=== PATIENT | male | born 1985 | race Caucasian/White ===

== ENCOUNTER 2016-09-06 18:00 | Inpatient (IN) | payer BC ==
[2016-09-06] MEDS ORDERED: Sodium Chloride 0.9% 3,000 ML IV ONE (18:49)
[2016-09-06 19:04] VITALS: BP 138/91
[2016-09-06 19:10] LABS: HEMATOCRIT 45.1 % (39.0-49.0); HEMOGLOBIN 15.6 gm/dL (13.2-17.3); MEAN CORPUSCULAR HEMOGLOBIN 30.8 pg (26.0-30.0); MEAN CORPUSCULAR HGB CONC 34.6 pg (28.0-36.0); MEAN PLATELET VOLUME 8.6 fl; PLATELET COUNT 295 Th/cmm (150-400); RED BLOOD COUNT 5.06 Mil/cmm (4.30-5.70); RED CELL DISTRIBUTION WIDTH 12.4 % (11.5-20.0)
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
[2016-09-06 19:26] LABS: ALB/GLOB RATIO 1.6 (1.0-1.8); ANION GAP 13.7 (7.0-16.0); BILIRUBIN,TOTAL 0.6 mg/dL (0.3-1.0); BUN/CREATININE RATIO 9.4; CARBON DIOXIDE 19.3 mEq/L (21.0-31.0); CREATININE - SERUM 1.8 mg/dL (0.7-1.3)
[2016-09-06 19:35] LABS: WHITE BLOOD COUNT 26.4 Th/cmm (4.8-10.8)
[2016-09-06 19:39] LABS: URINE COLOR YELLOW
[2016-09-06 19:40] LABS: URINE BILIRUBIN NEGATIVE (NEGATIVE); URINE BLOOD TRACE (NEGATIVE); URINE GLUCOSE (UA) 500 mg/dL (NEGATIVE); URINE KETONE NEGATIVE (NEGATIVE); URINE PH 5.5; URINE PROTEIN 30 mg/dL (NEGATIVE); URINE UROBILINOGEN 0.2 E.U./dL (0.2 - 1.0)
[2016-09-06 19:41] LABS: URINE BACTERIA NONE SEEN /hpf (NONE SEEN); URINE EPITHELIAL CELLS NONE SEEN /lpf (FEW); URINE RBC NONE SEEN /hpf (0-5); URINE WBC NONE SEEN /hpf (0-5)
[2016-09-06 19:50] LABS: AMPHETAMINE URINE NEGATIVE (NEGATIVE); BARBITURATES URINE NEGATIVE (NEGATIVE); METHADONE URINE NEGATIVE (NEGATIVE)
[2016-09-06] MEDS ORDERED: Albuterol/Ipratropium Neb 3 ML AERS HHN PRN (19:57)
[2016-09-06 20:19] LABS: TOTAL CELLS COUNTED 100
[2016-09-06 20:20] LABS: BAND NEUTROPHILE 14 % (0-10); BASOPHIL 0 % (0-3); EOSINOPHIL 0 % (0-5); NEUTROPHILS 76 % (40-80); PLATELET ESTIMATE ADEQUATE (NORMAL); PLATELET MORPHOLOGY NORMAL (NORMAL)
[2016-09-06] MEDS: Sodium Chloride 0.9% 1,000 ML IV SCH (21:20)
[2016-09-06] MEDS ORDERED: Levofloxacin 750mg/150mL 750 MG/150 ML BAG IV ONE (21:45)
--- NOTE | 2016-09-06 22:21 | Admit Criteria Form ---
Admit Criteria Forms - Admit Criteria Diagnosis: INTENSIVE CARE UNIT ADMISSION Intensive Care Admission Guidelines ( Place 'X' for any and all applicable criteria): Admission to ICU may be indicated when need is demonstrated by ANY ONE of the following (1)(2)(3)(4)(5)(6)(7)(8)(9) : [ ]I. Vital sign abnormalities, including ANY ONE of the following: [ ]a) Systolic arterial pressure less than 90 mm Hg, or 20 mm Hg below the patient's usual pressure [ ]b) Diastolic arterial pressure greater than 120 mm Hg [ ]c) Mean arterial pressure less than 70 mm Hg [A] [ ]d) Pulse less than 40 or greater than 140 beats per minute (in adult) [ ]e) Respiratory rate greater than 35 or less than 8 breaths per minute [ ]II. Laboratory findings (new), including ANY ONE of the following (10): [ ]a) Saturation of arterial oxygen less than 88% or partial pressure of oxygen less than 60 mm Hg (8.0 kPa) despite oxygen supplementation [ ]b) Rising partial pressure of carbon dioxide with respiratory acidosis [ ]c) pH less than 7.2 or greater than 7.65 [ ]d) Serum glucose greater than 800 mg/dL (44.4 mmol/L) [ ]e) Serum sodium less than 110 mEq/L (mmol/L) or greater than 160 mEq/L (mmol/L) [ ]f) Serum potassium less than 2 mEq/L (mmol/L) or greater than 7 mEq /L (mmol/L) [ ]g) Serum calcium greater than 15 mg/dL (3.75 mmol/L) [ ]h) Serum phosphorus less than 1 mg/dL (0.32 mmol/L) [ ]i) Toxic drug level or poisoning causing or likely to cause neurologic or Hemodynamic instability [ ]j) Less severe laboratory abnormalities contributing to ANY ONE of the following: [ ]i) Seizure [ ]ii) Altered mental status [ ]iii) Muscle weakness [ ]iv) Arrhythmias [ ]v) Hemodynamic instability [ ]vi) Other significant clinical manifestations [ ]III. Electrocardiogram (or cardiac monitoring) findings, including ANY ONE of the following: [ ]a) Inherently unstable or life-threatening arrhythmia (eg, sustained ventricular tachycardia, ventricular fibrillation, asystole) [ ]b) Arrhythmia causing severe hypotension (eg, bradycardia, tachycardia) [ ]c) Complete heart block causing severe hypotension [ ]d) Other findings indicative of a need for intensive care (eg , OR) [ ]IV.Physical findings, including ANY ONE of the following: [ ]a) Threatened airway [ ]b) Sudden altered mental status [ ]c) Repeated or prolonged seizures [ ]d) Coma [ ]e) New-onset anuria (urine output <0.1 mL/kg/hr over 4 h) [ ]f) Cyanosis (new) [ ]g) Cardiac tamponade [ ]h) Status post respiratory or cardiac arrest [ ]i) Severe banuelos (eg, partial thickness banuelos over more than 10% of body surface, third-degree banuelos) [ ]j) Findings consistent with abdominal emergency (eg, peritoneal signs) [ ]V.Imaging findings, such as dissecting aneurysm or ruptured viscus [ ].Specific intervention or monitoring needed, as indicated by ANY ONE of the following: [ ]a) New need for assisted ventilation, invasive or noninvasive(11) [ ]b) New need for intubation (eg, to protect airway) [ ]c) New tracheostomy (less than 48 hours old) [ ]d) Hourly vital signs or neurologic checks [ ]e) Pulmonary artery line monitoring needed [ ]f) Continuous arterial line monitoring needed [ ]g) Continuous IV vasoactive drugs [ ]h) Continuous IV antiarrhythmics [ ]i) Large volume IV fluid resuscitation (eg, greater than 6 L per day ) [ ]j) Large or rapid transfusion needs (eg, more than 6 units within 24 hours) [ ]k) High-risk IV treatment, such as bolus IV medicatns or mannitol infusion [ ]l) Acute cardiac pacing [ ]m) Intra-aortic balloon pump [ ]n) Ventricular assist device [ ]o) Cardioversion [ ]p) Pericardiocentesis [ ]q) Hemodialysis in unstable patient [ ]r) Continuous renal replacement therapy (eg, continuous veno-venous hemofiltration) [ ]s) Peritoneal dialysis initiation [ ]t) Emergency bronchoscopic therapy (eg, for hemoptysis) [ ]u) Emergency endoscopic therapy for bleeding [ ]v) Balloon tamponade for variceal bleeding [ ]w) Intracranial pressure monitoring or tissue oxygen monitoring [ ]x) Ventriculostomy monitoring [ ]y) Treatment of ongoing seizures [ ]z) Induced hypothermia or coma [ ]aa) Ongoing frequent testing and treatment for acute conditions, including ANY ONE of the following: [ ]i) Correction of severe metabolic acidosis/ alkalosis [ ]ii). Severe fluid overload [ ]iii) Cerebral edema [ ]iv) Monitoring or suctioning for respiratory insufficiency or acidosis [ ]v) Monitoring for active bleeding [ ]bb) Rapid desensitization for high-risk hypersensitivity reaction to required medication (eg, penicillin)(12) [ ]cc) Other need for treatment or monitoring not available outside the ICU [ ]VII.Cardiology diagnoses or procedures, including ANY ONE of the following (13)(14)(15)(16)(17): [ ]a) Chest pain with ANY ONE of the following: [ ]i) Hemodynamic instability [ ]ii) Suspicion of diagnoses needing ICU care (eg, aortic dissection) [ ]iii) New unstable or symptomatic arrhythmia or ECG finding (eg, ventricular tachycardia, ventricular fibrillation, advanced heart block) [ ]iv) Syncope or near-syncope [ ]v) SBP less than 100 mm Hg [ ]vi) Pulmonary edema thought to be due to ischemia [ ]vii) New or worsening mitral regurgitation murmur, S3 , or rales [ ]b) Acute OR with complications as indicated by ANY ONE of the following: [ ]i) Persistent chest pain [ ]ii) Hemodynamic instability [ ]iii) New unstable or symptomatic arrhythmia or ECG finding (eg, ventricular tachycardia, ventricular fibrillation, advanced heart block) [ ]iv) Syncope or near-syncope [ ]v) Pulmonary edema thought to be due to ischemia [ ]vi) New or worsening mitral regurgitation murmur, S3 , or rales [ ]vii) New-onset bundle branch block [ ]viii) Hemorrhagic complication (eg, intracranial or access site bleed following thrombolysis) [ ]c) Cardiac arrhythmia or conduction defect with Hemodynamic instability [ ]d) Complication of cardiac ablation, including ANY ONE of the following(18): [ ]i) Pericardial tamponade [ ]ii) Hemodynamic instability [ ]iii) Thromboembolic stroke [ ]iv) Aortic valve injury [ ]v) Vascular injuries [ ]vi) Esophageal perforation [ ]vii) Severe arrhythmia [ ]viii) Air embolism [ ]ix) Other severe complication [ ]e) Cardiogenic shock [ ]f) Hypertensive emergency, with need for ANY ONE of the following(19): [ ]i) IV antihypertensive therapy [ ]ii) Invasive hemodynamic monitoring (eg, arterial line) [ ]g) Pericardial tamponade [ ]h) Severe heart failure, with ANY ONE of the following(15): [ ]i) Respiratory failure [ ]ii) Cardiogenic shock [ ]iii) Severe arrhythmias [ ]iv) Evidence of cardiac ischemia [ ]i Myocarditis, with ANY ONE of the following [ ]i) Hemodynamic instability [ ]ii) Respiratory failure [ ]iii) Severe arrhythmias [ ]iv) Need for cardiac assist device (eg, left ventricular assist device or extracorporeal membrane oxygenator) [ ]j) Status post cardiac arrest(20) [ ]VIII. Cardiovascular Surgery diagnoses or procedures, including ANY ONE of the following.(21)(22): [ ]a) Acute aortic dissection [ ]b) Aortic surgery for ANY ONE of the following: [ ]i) Thoracic aneurysm [ ]ii) Abdominal aneurysm with ANY ONE of the following(23): [ ]1) Emergency repair [ ]2) Severe cardiopulmonary disease [ ]3) Dialysis-dependent renal failure [ ]4) Need for IV blood pressure control [ ]5) Need for ongoing ventilatory support [ ]6) Perioperative complications, including ANY ONE of the following: [ ]A. Sustained Hemodynamic instability [ ]B. Cardiac ischemia or arrhythmia [ ]C. Hypothermia (less than 35 degrees C (95 degrees F)) [ ]D. Blood transfusion greater than 3 L [ ]iii) Aortic coarctation operative excision or repair [ ]iv) Aortofemoral or aortoiliac bypass with ANY ONE of the following: [ ]1) Continued intubation [ ]2) Hemodynamic instability [ ]3) Need for IV blood pressure control [ ]4) Severe cardiopulmonary disease [ ]c) Cardiac surgery [ ]d) Carotid endarterectomy or stent placement with ANY ONE of the following: [ ]i) Blood pressure <100/60 mm Hg or >160/90 mm Hg despite 4 h of postanesthetic management [ ]ii) New or progressive neurologic defect [ ]iii) Chest pain [ ]iv) Continued intubation [ ]v) Heart failure [ ]vi) Airway compromise by hematoma or vocal cord paralysis [ ]vi) Need for IV blood pressure control [ ]e) Heart transplant [ ]f) Infrainguinal peripheral vascular surgery with ANY ONE of the following: [ ]i) Hemodynamic instability [ ]ii) Acute complications such as persistent chest pain or respiratory distress [ ]iii) Requirement for IV antiarrhythmic or vasoactive agent [ ]iv) Requirement for pulmonary artery catheter [ ]v) Severe hypertension despite 6 hours of recovery room management [ ]g) Complications of any surgery requiring ICU intervention as indicated by ANY ONE of the following(24): [ ]i) Hemodynamic instability [ ]ii) Myocardial infarction with complications (eg, severe arrhythmia, hypotension) [ ]iii) Excessive bleeding or severe coagulopathy [ ]iv) Respiratory failure [ ]v) Renal failure [ ]vi) Airway instability or obstruction [ ]vii) Neurologic deterioration [ ]viii) Infection with likelihood of sepsis syndrome or significant fluid shifts [ ]IX.Endocrinology diagnoses or procedures, including ANY ONE of the following(25)(26): [ ]a) Adrenal crisis with Hemodynamic instability(27) [ ]b) Pheochromocytoma with ANY ONE of the following(28): [ ]i) Hypertensive crisis [ ]ii) Postoperative Hemodynamic instability [ ]iii) Need for IV vasoactive therapy [ ]iv) Need for invasive arterial or central venous pressure monitoring [ ]v) Organ ischemia [ ]c) Diabetic hyperosmolar state with obtundation or coma [ ]d) Diabetic ketoacidosis with ANY ONE of the following: [ ]i) Serum pH less than 7.10 or bicarbonate level less than 10 mEq/L (mmol/L) [ ]ii) Rapidly changing electrolytes [ ]iii) Hypotension [ ]iv) Requirement for large-volume fluid resuscitation [ ]v) Respiratory insufficiency [ ]vi) Life-threatening cardiac dysrhythmias [ ]vii) Obtundation [ ]viii) Severe precipitating condition such as sepsis, stroke, or acute OR [ ]e) Severe hypoglycemia requiring continuous glucose infusion with frequent adjustment or glucagon infusion [ ]f) Hyperthyroidism associated with thyroid storm (also known as thyrotoxic crisis)(29) [ ]g) Myxedema with life-threatening neurologic, cardiovascular, electrolyte, or renal dysfunction(29) [ ]h) Diabetes insipidus that cannot be controlled with routine medication (30) [ ]X. Gastroenterology diagnoses or procedures, including ANY ONE of the following: [ ]a) Esophageal perforation(31) [ ]b) Severe caustic esophageal injury(31) [ ]c) Liver disease complications with ANY ONE of the following(32): [ ]i) Severe hepatic encephalopathy (eg, stage 3 (somnolent) or higher) [ ]ii) Type 1 hepatorenal syndrome [ ]iii) Other cirrhosis-associated causes of acute renal failure ( eg, severe hypovolemia, acute tubular necrosis, abdominal compartment syndrome) [ ]iv) Hemodynamic instability [ ]v) Respiratory insufficiency due to severe ascites [ ]vi) Sepsis due to spontaneous bacterial peritonitis [ ]d) Fulminant hepatic failure when aggressive intervention or transplant is anticipated (32) [ ]e) Gastrointestinal hemorrhage (upper or lower) with ANY ONE of the following(33)(34): [ ]i) Active ongoing bleeding [ ]ii) Transfusion requirement greater than 2 units of packed red cells [ ]iii) Bleeding ulcer or nonbleeding visible vessel seen on endoscopy [ ]iv) Bleeding ulcer, visible blood vessel, bleeding (or recently bleeding) esophageal varices seen on endoscopy [ ]v) Hypotension [ ]vi) Syncope [ ]vii) Coagulopathy [ ]viii) Hepatic cirrhosis [ ]ix) Abnormal mental status [ ]x) Unstable comorbid condition or end organ dysfunction [ ]xi) Ischemia due to poor perfusion [ ]xii) Need for hemodynamic monitoring (eg, for patients with heart failure or valvular disease) [ ]f) Severe pancreatitis indicated by ANY ONE of the following (35)(36): [ ]i) Requirement for aggressive fluid resuscitation [ ]ii) Life-threatening electrolyte abnormality [ ]iii) SBP less than 90 mm Hg [ ]iv) Persistent tachycardia greater than 120 beats per minute [ ]v) Patients at high risk of rapid deterioration, including ANY ONE of the following: [ ]1) Calculated [place] II score greater than 8 [ ]2) Age older than 55 years [ ]3) BMI greater than 30 [ ]4) Greater than 30% pancreatic necrosis on CT scan [ ]5) Admission hematocrit greater than 47% (0.47) [ ]vi) Organ failure as indicated by ANY ONE of the following: [ ]1) Serum creatinine greater than 1.9 mg/dL (168 micromoles/L) [ ]2) Requirement for mechanical ventilation [ ]3) Urine output less than 50 mL/hour [ ]4) Arterial partial pressure of oxygen less than 60 mm Hg (8.0 kPa) despite supplemental oxygen [ ]5) PiO2/FiO2 ratio less than 300 [ ]vii) Expanding pseudocyst [ ]viii) Infected pancreas [ ]ix) Pleural effusion [ ]x) Encephalopathy [ ]xi) Severe comorbidities [ ]XI. General Surgery diagnoses or procedures, including ANY ONE of the following (9)(24)(37): [ ]a) Acute abdominal catastrophe (eg, ischemic bowel, perforated viscus, abdominal compartment syndrome) [ ]b) Complications of any surgery requiring ICU intervention as indicated by ANY ONE of the following: [ ]i) Hemodynamic instability [ ]ii) OR with complications (eg, severe arrhythmia, hypotension) [ ]iii) Excessive bleeding or severe coagulopathy [ ]iv) Respiratory failure [ ]v) Renal failure [ ]vi) Airway instability or obstruction [ ]vii) Neurologic deterioration [ ]viii) Infection with likelihood of sepsis syndrome or significant fluid shifts [ ]c) Multiple trauma with complicating features as indicated by ANY ONE of the following(38): [ ]i) Impending acute respiratory failure due to lung contusion, unstable chest wall, aspiration, or hemorrhage [ ]ii) Facial or neck injury threatening airway patency [ ]iii) Cardiac contusion [ ]iv) Pericardial effusion [ ]v) Bronchial tear [ ]vi) Hemodynamic instability [ ]vii) Rhabdomyolisis requiring large volume IV fluid resuscitation [ ]viii)Other significant complicating feature [ ]d) Organ transplant(39)(40) [ ]e) Esophagectomy(31) [ ]f) Whipple procedure [ ]g) Preoperative or postoperative patients requiring ICU intervention, such as hemodynamic optimization, pulmonary artery monitoring, mechanical ventilation, or extensive nursing care [ ]h) Obesity surgery patients with ANY ONE of the following(41): [ ]i) ICU management needs for comorbid conditions, such as sleep apnea or airway management needs [ ]ii) Failed postoperative extubation [ ]iii) Intraoperative complications [ ]XII. Nephrology diagnoses or procedures, including acute, or acute on chronic renal insufficiency with ANY ONE of the following(44)(45): [ ]a) Life-threatening electrolyte or acid-base disorder [ ]b) Acute pulmonary edema [ ]c) Hypotension or significant volume depletion [ ]d) Hypertensive emergency [ ]e) Underlying critical illness contributing to renal failure (eg, septic shock, hepatorenal syndrome) [ ]f) Need for continuous renal replacement therapy [X]XIII. Neurology diagnoses or procedures, including ANY ONE of the following (46)(47) [B] : [ ]a) Intracranial hypertension requiring ANY ONE of the following(49 ): [ ]i) Induced barbiturate coma [ ]ii) Pharmacologic paralysis or deep sedation and mechanical ventilation [ ]iii) Intracranial pressure or cerebral perfusion pressure monitoring [ ]iv) IV mannitol or hypertonic saline [ ]v) Frequent serum osmolality measurements [ ]b) Seizures with ANY ONE of the following(50): [ ]i) Status epilepticus [ ]ii) Airway compromise requiring or likely to require mechanical ventilation [ ]iii) Severe electrolyte abnormalities causing seizures [ ]c) Progressive acute neurologic dysfunction requiring or likely to require ANY ONE of the following: [ ]i) Mechanical ventilation [ ]ii) Intracranial pressure or cerebral perfusion pressure monitoring [ ]d) Meningitis with obtundation or respiratory insufficiency [C])(51 ) [ ]e) Stroke with ANY ONE of the following(52)(53): [ ]i) Need for observation after thrombolysis [ ]ii) Altered mental status [ ]iii) Need for mechanical ventilation [ ]iv) Elevated intracranial pressure [ ]v) Hypertensive emergency [ ]vi) High risk of progressive infarction or deterioration based on CT scan or MRI [ ]vii) Hemorrhage [ ]f) Acute coma [ ]g) Acute spontaneous intracranial hemorrhage(53)(54) [X]h) Drug ingestion with ANY ONE of the following(56)(57): [ ]i) Hemodynamic instability [ ]ii) Respiratory depression (partial pressure of carbon dioxide >45 mm Hg (6.0 kPa), new) [X]iii) Patient requires or is likely to require mechanical ventilation. [ ]iv) Arrhythmias [ ]v) Seizures [ ]vi) Altered mental status (Jeffrey coma scale score less than 12, new) [ ]vii) Significant risk for acute deterioration (eg, toxic level of hypotension or arrhythmia-producing drug) [ ]viii) Drug-induced hypothermia or hyperthermia [ ]ix) Increasing metabolic acidosis [ ]x) Severe hypoglycemia requiring glucose infusion with frequent adjustment or glucagon administration [ ]xi) Ongoing antidote administration (eg, continuous naloxone infusion, organophosphate toxicity treatment) [ ]xii) Emergency intervention need (eg, dialysis, hemoperfusion, restraints) [ ]i) Brain with preparation for organ donation [ ]j) Traumatic brain injury with ANY ONE of the following(55): [ ]i) Altered mental status (eg, new onset Jeffrey coma scale score less than 10) [ ]ii) Cerebral edema [ ]iii) Cerebral hemorrhage [ ]iv) Increased intracranial pressure [ ]XIV. Neurosurgery diagnoses or procedures, including ANY ONE of the following(49)(58)(59): [ ]a) Emergency craniotomy for tumor, hematoma, or trauma [ ]b) Elective craniotomy for posterior fossa tumor [ ]c) Elective craniotomy (supratentorial) for tumor with ANY ONE of the following: [ ]i) Postoperative neurologic deficit or impaired consciousness 6 hours after completion of procedure [ ]ii) SBP less than 110 mm Hg or greater than 180 mm Hg despite therapy [ ]iii) Extensive operative blood loss [ ]iv) High anesthesia risk (eg, [place] [employer] anest[employer] score greater than 3 [ ]d) Craniotomy for aneurysm with ANY ONE of the following: [ ]i) Postoperative neurologic deficit or impaired consciousness 6 hours after completion of procedure [ ]ii) Preoperative Gray-Whitaker grade 3 or higher [ ]iii) SBP less than 110 mm Hg or greater than 180 mm Hg despite therapy [ ]iv) Intracranial pressure monitoring [ ]e) Acute spinal cord injury [ ]f) Subarachnoid hemorrhage [ ]g) Traumatic brain injury with ANY ONE of the following: [ ]i) Acute mental status change ([place] coma scale score less than 10) [ ]ii) CT scan showing cerebral edema or hemorrhage [ ]iii) Intracranial pressure monitoring [ ]h) Complications of any surgery requiring ICU intervention as indicated by ANY ONE of the following(60): [ ]i) Hemodynamic instability [ ]ii) OR with complications (eg, severe arrhythmia, hypotension) [ ]iii) Excessive bleeding or severe coagulopathy [ ]iv) Respiratory failure [ ] v) Renal failure [ ]vi) Airway instability or obstruction [ ]vii) Neurologic deterioration [ ]viii) Infection with likelihood of sepsis syndrome or significant fluid shifts [ ]i) Preoperative or postoperative patients requiring ICU intervention, such as hemodynamic optimization, pulmonary artery monitoring, mechanical ventilation, or extensive nursing care [ ]XV.Obstetrics and Gynecology diagnoses or procedures, including ANY ONE of the ffg. (61)(62)(63): [ ]a) Severe peripartum condition as indicated by ANY ONE of the following: [ ]i) Eclampsia [ ]ii) Hypertensive emergency [ ]iii) HELLP syndrome (hemolysis, elevated liver enzymes, and low platelet count) [ ]iv) Pulmonary edema [ ]v) Respiratory failure [ ]vi) Pulmonary embolism [ ]vii) Anaphylactoid syndrome of (amniotic fluid embolus) [ ]viii) Ovarian hyperstimulation syndrome [D] [ ]ix) Acute fatty liver of (hepatic failure) [ ]x) Complications such as placental abruption or severe hemorrhage [ ]xi) Sepsis (eg, puerperal sepsis, chorioamnionitis, septic ) [ ]xii) cardiomyopathy with severe congestive heart failure (eg, respiratory failure, cardiogenic shock) [ ]b) Ruptured ectopic [ ]c) Complications of any surgery requiring ICU intervention as indicated by ANY ONE of the following: [ ]i) Hemodynamic instability [ ]ii) OR with complications (eg, severe arrhythmia, hypotension) [ ]iii) Excessive bleeding or severe coagulopathy [ ]iv) Respiratory failure [ ]v) Renal failure [ ]vi) Airway instability or obstruction [ ]vii) Neurologic deterioration [ ]viii) Infection with likelihood of sepsis syndrome or significant fluid shifts [ ]d) Preoperative or postoperative patients requiring ICU intervention , such as hemodynamic optimization, pulmonary artery monitoring, mechanical ventilation, or extensive nursing care [ ]XVI.Ophthalmology diagnoses or procedures, including ANY ONE of the following (64): [ ]a) Complications of any surgery requiring ICU intervention, such as ANY ONE of the following: [ ]i) Hemodynamic instability [ ]ii) OR with complications (eg, severe arrhythmia, hypotension) [ ]iii) Excessive bleeding or severe coagulopathy [ ]iv) Respiratory failure [ ]v) Renal failure [ ]vi) Airway instability or obstruction [ ]vii) Neurologic deterioration [ ]viii) Infection with likelihood of sepsis syndrome or significant fluid shifts [ ]b) Preoperative or postoperative patients requiring ICU intervention , such as hemodynamic optimization, pulmonary artery monitoring, mechanical ventilation, or extensive nursing care [ ]XVII.Orthopedics diagnoses or procedures, including ANY ONE of the following [phone]): [ ]a) Complications of any surgery requiring ICU intervention as indicated by ANY ONE of the following: [ ]i) Hemodynamic instability [ ]ii) OR with complications (eg, severe arrhythmia, hypotension) [ ]iii) Excessive bleeding or severe coagulopathy [ ]iv) Respiratory failure [ ]v) Renal failure [ ]vi) Airway instability or obstruction [ ] vii) Neurologic deterioration [ ]viii) Infection with likelihood of sepsis syndrome or significant fluid shifts [ ]b) Multiple trauma with complicating features as indicated by ANY ONE of the following(38): [ ]i) Impending acute respiratory failure due to lung contusion, unstable chest wall, pneumothorax, aspiration, or hemorrhage [ ]ii) Facial or neck injury threatening airway patency [ ]iii) Cardiac contusion [ ]iv) Rhabdomyolysis requiring large volume IV fluid resuscitation [ ]v) Pericardial effusion [ ]vi) Bronchial tear [ ]vii) Hemodynamic instability [ ]viii) Other significant complicating feature [ ]c) Threatened compartment syndrome [ ]d) Severe banuelos with ANY ONE of the following(68)(69)(70): [ ]i) Hypotension or requirement for aggressive fluid resuscitation [ ]ii) Respiratory insufficiency with requirement for high- flow oxygen or mechanical ventilation [ ]iii) Carbon monoxide poisoning [ ]iv) Life-threatening cardiac, renal, pulmonary, or neurologic dysfunction [ ]v) High-voltage (eg, 1000 volts or more) electrical burn [ ]vi) Requirement for frequent or intensive debridement and dressing changes; examples include: [ ]1) Partial thickness banuelos greater than 10% of body surface [ ]2) Banuelos on face, hands, feet, genitalia, perineum , or major joints [ ]3) Third-degree banuelos [ ]4) Any burn greater than 15% of body surface area [ ]vii) Inhalation lung injury [ ]viii) Concomitant trauma or other medical condition requiring ICU care [ ]e) Preoperative or postoperative patients requiring ICU intervention , such as hemodynamic optimization, pulmonary artery monitoring, mechanical ventilation, or extensive nursing care [ ]XVIII.Otolaryngology diagnoses or procedures, including ANY ONE of the following (71)(72): [ ]a) Complications of any surgery requiring ICU intervention as indicated by ANY ONE of the following: [ ]i) Hemodynamic instability [ ]ii) OR with complications (eg, severe arrhythmia, hypotension) [ ]iii) Excessive bleeding or severe coagulopathy [ ]iv) Respiratory failure [ ]v) Renal failure [ ]vi) Airway instability or obstruction [ ]vii) Neurologic deterioration [ ]viii) Infection with likelihood of sepsis syndrome or significant fluid shifts [ ]b) Airway or hemodynamic compromise that persists after 3 hours of observation in postanesthesia care unit following nasal, palate (eg, uvulopalatopharyngoplasty or palatoplasty), or tongue surgery for sleep apnea [ ]c) Preoperative or postoperative patient requiring ICU intervention, such as hemodynamic optimization, pulmonary artery monitoring, mechanical ventilation, or extensive nursing care [ ]d) Symptomatic upper airway compromise (eg, laryngeal edema, mass) [ ]e) Other airway-compromising procedure (eg, posterior nasal packing) [ ]XIX.Thoracic Surgery and Pulmonary Disease Diagnosis or procedures, including ANY ONE of the following(6): [ ]a) Asthma with ANY ONE of the following(73)(74): [ ]i) Impending or actual respiratory arrest [ ]ii) Need for mechanical ventilation [ ]iii) Peak expiratory flow rate less than 30% of predicted or personal best [ ]iv) Peak expiratory flow rate or FEV1 less than 40% predicted after 1 hour of initial treatment [ ]v) Acidosis [ ]vi) Persistent or worsening hypoxia after initial treatment [ ]vii) Hypercapnia (eg, partial pressure of carbon dioxide greater than 43 mm Hg (5.7 kPa)) [ ]viii) Severe drowsiness, confusion, or coma [ ]ix) Requiring continuous inhaled bronchodilator [ ]b) COPD with ANY ONE of the following(75): [ ]i) Need for assisted ventilation [ ]ii) Hemodynamic instability [ ]iii) Severe dyspnea unresponsive to initial treatment [ ]iv) Change in level of consciousness [ ]v) Persistent findings despite oxygen and outpatient management, including ANY ONE of the following: [ ]1) Partial pressure of oxygen less than 40 mm Hg ( 5.3 kPa) [ ]2) Partial pressure of carbon dioxide greater than 60 mm Hg (8.0 kPa) [ ]3) pH less than 7.25 [ ]4) Worsening hypoxemia or acidosis [ ]c) Cor pulmonale with ANY ONE of the following(75)(76)(77): [ ]i) Hemodynamic instability [ ]ii) Need for IV inotropic or vasoactive agent [ ]iii) Need for invasive hemodynamic monitoring (eg, central venous, pulmonary artery, or arterial catheter) [ ]iv) Hypoxemia with partial pressure of oxygen less than 40 mm Hg (5.3 kPa) [ ]v) Worsening hypoxemia or acidosis despite oxygen therapy [ ]vi) Need for assisted ventilation [ ]vii) Need for right ventricular assist device [ ]viii) Unstable atrial tachyarrhythmia [ ]ix) Need for inhaled nitric oxide [ ]d) Aspiration pneumonia with ANY ONE of the following(78): [ ]i) Acute respiratory distress syndrome (PaO2/FiO2 ratio of 300 or less) [ ]ii) Impending or actual respiratory arrest [ ]iii) Need for invasive or noninvasive mechanical ventilation [ ]e) Pneumocystis jiroveci pneumonia with ANY ONE of the following(79): [ ]i) Impending or actual respiratory arrest [ ]ii) Hypoxia (eg, PO260 mmGh (8.0 kPa) or less despite oxygen therapy) [ ]iii) Need for invasive or noninvasive mechanical ventilation [ ]f) Pneumonia with ANY ONE of the following(80)(81)(82): [ ]i) Need for invasive or noninvasive assisted ventilation [ ]ii) Hemodynamic instability [ ]iii) Severity factors as indicated by 3 or MORE of the following: [ ]1) Respiratory rate 30 breaths per minute or greater [ ]2) PaO2/FiO2 ratio of 250 or less [ ]3) Multilobed infiltrates [ ]4) Altered mental status [ ]5) BUN 20 mg/dL (7.1 mmol/L) or greater [ ]6) WBC count less than 4000/mm3 (4 x109/L) [ ]7) Platelet count <100,000/mm3 (100 x109/L) [ ]8) Temperature less than 36 degrees C (96.8 degrees F ) [ ]9) Hypotension requiring aggressive fluid resuscitation [ ]g) Pulmonary hypertension requiring initiation of parenteral pulmonary vasodilator or trial of inhaled nitric oxide (eg, need for right heart catheterization)(76) [ ]h) Impending respiratory failure as indicated by ANY ONE of the following: [ ]i) Respiratory rate greater than 30 or partial pressure of oxygen less than 60 mm Hg (8.0 kPa) on 50% oxygen or more [ ]ii) Partial pressure of carbon dioxide greater than 45 mm Hg (6.0 kPa) with pH less than 7.35 [ ]i) Respiratory failure with ANY ONE of the following (47): [ ]i) Need for invasive or noninvasive mechanical ventilation [ ]ii) High likelihood of requiring mechanical ventilation within 24 hours [ ]iii) Observation in the first several hours immediately after extubation from mechanical ventilation [ ]iv) Need for close observation and aggressive therapy, such as suctioning, chest physiotherapy, or inhalation treatments at intervals less than 1 hour [ ]v) Pharmacologic ventilatory paralysis [ ]j) Venous thromboembolism with need for systemic or catheter- directed thrombolysis (eg, for limb-threatening thrombosis, phlegmasia cerulea dolens) (83) [ ]k) Pulmonary embolus with ANY ONE of the following(83): [ ]i) Hypotension [ ]ii) Severe hypoxia [ ]iii) Dangerous arrhythmia [ ]iv) Bleeding [ ]v) Need for systemic or catheter-directed thrombolysis [ ]l) Lobectomy or other major thoracic surgery [ ]m) Lung transplant [ ]n) Symptomatic upper airway obstruction (eg, laryngeal edema, mass) [ ]o) Massive hemoptysis [ ]p) Infection or thrombosis of an intravenous device with ANY ONE of the following(6)(84): [ ]i) Hemodynamic instability [ ]ii) Requirement for frequent hemodynamic measurements [ ]iii) Shock [ ]iv) End organ dysfunction [ ] v) Acute renal failure due to missed dialysis [ ]vi) Unstable acute complication (eg, pericardial tamponade , tension pneumothorax) [ ]q) Traumatic rib fracture or fractures with ANY ONE of the following(85): [ ]i) Injury severity score of 19 or greater [ ]ii) Respiratory insufficiency [ ]iii) Flail chest [ ]iv) Sternum fracture [ ]v) Vascular injury (eg, heart or great vessels) [ ]r) Pleural effusion with ANY ONE of the following(86): [ ]i) Respiratory insufficiency [ ]ii) Hemothorax with active ongoing bleeding [ ]iii) Hemodynamic instability [ ]iv) Unstable comorbid condition (eg, sepsis or heart failure [ ]XX. Urology diagnoses or procedures, including ANY ONE of the following ( 87)(88): [ ]a) Renal transplant [ ]b) Complications of any surgery requiring ICU intervention as indicated by ANY ONE of the following: [ ]i) Hemodynamic instability [ ]ii) OR with complications (eg, severe arrhythmia, hypotension) [ ]iii) Excessive bleeding or severe coagulopathy [ ]iv) Respiratory failure [ ]v) Renal failure [ ]vi) Airway instability or obstruction [ ]vii) Neurologic deterioration [ ]viii) Infection with likelihood of sepsis syndrome or significant fluid shifts [ ]c) Preoperative or postoperative patients requiring ICU intervention , such as hemodynamic optimization, pulmonary artery monitoring, mechanical ventilation , or extensive nursing care [ ]XXI.Infectious Disease diagnoses or procedures, with ANY ONE of the following (6)(43): [ ]a) Hemodynamic instability [ ]b) Shock [ ]c) Requirement for frequent hemodynamic measurements (eg, arterial catheter, pulmonary artery catheter) [ ]d) Sepsis or suspected sepsis with end organ dysfunction (eg, acute kidney injury, acute respiratory distress syndrome) [ ]e) Necrotizing soft tissue infection [ ] XXII.Hematology - Oncology diagnoses or procedures, including chemotherapy administration with ANY ONE of the following(42): [ ]a) Hemodynamic instability [ ]b) Tumor lysis syndrome with ANY ONE of the following : [ ]1) Acute kidney injury [ ]2) Severe electrolyte abnormality [ ]3) Cardiac dysrhythmia [ ]XXIII. Systemic conditions, including ANY ONE of the following: [ ]a) Severe electrolyte or metabolic disturbance causing or likely to cause ANY ONE of the following(10)(89)(90): [ ]i) Life-threatening cardiac dysrhythmia [ ]ii) Respiratory insufficiency [ ]iii) Altered mental status [ ]iv) Seizures [ ]v) Hemodynamic instability [ ]vi) Muscular weakness [ ]b) Environmental injuries such as hypothermia, hyperthermia, electrical injuries, or near drowning(70)(91)(92) The original [facility] content created by [employer] has been revised. The portions of the content which have been revised are identified through the use of italic text or in bold, and [facility] has neither reviewed nor approved the modified material. All other unmodified content is copyright [facility]. Please see references footnoted in the original [facility] edition 2016 Admit Criteria Met?: Yes
[2016-09-06] MEDS: Albuterol/Ipratropium Neb 3 ML AERS HHN SCH (22:38)
[2016-09-07] MEDS: Albuterol/Ipratropium Neb 3 ML AERS HHN SCH ×6 (02:32→23:00)
[2016-09-07 03:12] LABS: HCO3 18.3 mEq/L (20.0-26.0); pH 7.12 (7.35-7.45)
[2016-09-07 03:13] LABS: ALLEN TEST yes; BE(B) -8.6 mEq/L (-3.0-3.0); CRITICAL VALUES REPORTED BY ab rcp; FIO2 100; MECH RATE 15; MECH VT 500
[2016-09-07 03:31] LABS: % EOSINOPHILS 0.4 % (0.0-5.0); MEAN PLATELET VOLUME 8.8 fl; RED CELL DISTRIBUTION WIDTH 12.4 % (11.5-20.0)
[2016-09-07 03:41] LABS: % BASOPHILS 0.2 % (0.0-2.0); % MONOCYTES 4.4 % (2.0-10.0); MEAN CELL VOLUME 87.5 fl (80-99); MEAN CORPUSCULAR HGB CONC 35.5 pg (28.0-36.0); NEUTROPHILE ABSOLUTE 11.8 Th/cmm (1.8-8.0); PLATELET COUNT 249 Th/cmm (150-400); RED BLOOD COUNT 4.24 Mil/cmm (4.30-5.70)
[2016-09-07 04:20] LABS: HEMOGLOBIN 13.2 gm/dL (13.2-17.3)
[2016-09-07 04:21] LABS: HEMATOCRIT 37.1 % (39.0-49.0)
[2016-09-07 04:31] LABS: ACETAMINOPHEN < 10.0 ug/mL (10.0-30.0); ANION GAP 10.3 (7.0-16.0); BUN - UREA NITROGEN 13 mg/dL (7-25); CALCIUM SERUM 8.7 mg/dL (8.6-10.3); CARBON DIOXIDE 20.4 mEq/L (21.0-31.0); CHLORIDE 113 mEq/L (98-107); GLUCOSE 100 mg/dL (70-105); SODIUM SERUM 140 mEq/L (136-145)
[2016-09-07 04:35] LABS: POTASSIUM SERUM 3.7 mEq/L (3.5-5.1)
[2016-09-07] MEDS: INSULIN ASPART SLIDING SCALE 100 UNITS/ML UNIT SUBQ SCH ×4 (06:31→17:33)
[2016-09-07] MEDS: Sodium Chloride 0.9% 1,000 ML IV SCH (08:00)
[2016-09-07] MEDS: Chlorhexidine Gluconate 0.12% 15mL Mouthwash MM SCH ×2 (08:38→20:26)
--- NOTE | 2016-09-07 09:22 | Diagnostic Imaging Report ---
Portable chest x-ray HISTORY: Nasogastric tube placement Exam is limited to the lower chest and upper abdomen. The exam demonstrates a nasogastric tube projecting over the stomach. Nondilated bowel noted. No focal pulmonary processes seen within the visualized regions of the lungs. IMPRESSION: 1. Nasogastric tube projecting over the stomach
[2016-09-07 09:30] LABS: BE(B) -2.9 mEq/L (-3.0-3.0); HCO3 22.7 mEq/L (20.0-26.0); pH 7.42 (7.35-7.45)
[2016-09-07 09:31] LABS: ABG SOURCE Arterial; CRITICAL VALUES REPORTED BY PW; FIO2 30; MECH RATE 18; MECH VT 600
--- NOTE | 2016-09-07 09:56 | Diagnostic Imaging Report ---
Portable chest x-ray HISTORY: Cough, shortness of breath Prior exams are not available for comparison. The heart size is difficult to assess with portable technique in a poor inspiration. Infiltrate is noted within the right perihilar and right upper lobe regions. Findings are consistent with pneumonia. An endotracheal tube is seen with the tip approximately 5.0 cm above the geraldine. This should be advanced approximately 2-3 cm. IMPRESSION: 1. Infiltrate within the right perihilar/right upper lobe regions. Findings consistent with pneumonia. Clinical correlation needed. 2. Endotracheal tube tip approximately 5.0 cm above the geraldine. This may be advanced approximately 2-3 cm
--- NOTE | 2016-09-07 14:05 | History & Physical ---
REASON FOR ADMISSION: Drug overdose with acute respiratory failure on ventilator. HISTORY OF PRESENT ILLNESS: This 30-year-old gentleman found by mother on his bed with multiple bottles open and lips blue, fingers and nails blue. Paramedics were called and the patient intubated in Emergency Room as paramedics gave Narcan and the patient started breathing from agonal to the normal rate in Emergency Room. The patient had another episode of agonal breathing, and the patient intubated. The patient is now awakened. He has no recollection what happened yesterday. He gets very easily agitated. All other history obtained from the RN and the medical record. As a child, the patient has asthma, but not taking any medications. The patient had right shoulder surgery and recent psychiatric admission and a diagnosis of schizophrenia. Family not accepting the diagnosis. Per mother and paramedics note, the patient found to have a bottle of Ambien, Xanax and Zoloft. The patient was sniffing silver paint. ALLERGIES: None. SOCIAL HISTORY: Otherwise, question of street drug use. REVIEW OF SYSTEMS: Unable to do except the patient since admission remain afebrile. WBC was 26,000 on admission, now 16. Potassium on admission was 6, now 3.7. Troponin increased to 0.09. The patient denies any chest pain. No leg edema noted. The patient is on Mireles catheter and urine is yellow color. No joint swelling or any other trauma noted. PHYSICAL EXAMINATION: VITAL SIGNS: Temperature 98,7, afebrile since admission, pulse 98, respiratory rate is 23, blood pressure 118/67, saturation 98%, currently on AC of 18 and FiO2 50%. HEENT: Initially, paramedics noted pinpoint pupil. Now pupils is 2 mm to 3 mm and reactive. No icterus. No pallor. Oral intubation. LUNGS: Clear. CARDIOVASCULAR: S1 and S2 normal limits. ABDOMEN: Soft, benign, obese. Mireles catheter in place with yellow urine. EXTREMITIES: No leg edema. Dorsalis pedis palpable. CENTRAL NERVOUS SYSTEM: Able to move all extremities. LABORATORY TEST: WBC on admission 26, repeat one is 16, hemoglobin 15.6 on admission, now 13.2, MCV 87, platelets of 249,000, neutrophil 74, pH 7.12, pCO2 66, pO2 328 and bicarb 18 on admission after intubation with AC 15 and FiO2 100%, tidal volume 500. Sodium 140, potassium 3.7, chloride 113, bicarb 20, BUN 13, creatinine 1.0, glucose of 100 and CPK 144. Troponin 0.01 and now 0.09. TSH normal at 1.22. Urine tox screen positive for opiates and benzodiazepine. Salicylic acid is negative. Acetaminophen negative. Serum ketone negative. On admission, blood sugar was elevated at 348. ASSESSMENT AND PLAN: 1. Multiple drug overdose including Zoloft 50 mg, Xanax 1 mg, Ambien 12.5 mg and silver paint sniffing. 2. Acute respiratory failure with respiratory and metabolic acidosis mixed pattern with turning lips blue and fingertips blue with agonal breathing at time of admission 3. Schizophrenia.not treated recent psych admission, Dr. Márquez consult. 4. Exogenous obesity with BMI of 35.9. 5. Leukocytosis most likely reactive versus dehydration empiric iv levaquin and watch for fever. 6. Hyperglycemia, resolving. 7. Hyperkalemia, resolving. 8. Mireles catheter. Local care Once the patient is medically stabilize, we will obtain psychiatric consult. Meanwhile, we will obtain Dr. Jp Valdovinos consult for weaning of the ventilator. We are waiting for repeat ABG and weaning parameter and chest x-ray from today. Monitor the CBC and CMP. IV Protonix for GI prophylaxis. Hold other narcotics, hypnotics until stabilize. JOB# [id number] MATTHEW
--- NOTE | 2016-09-07 17:03 | Cardiology ---
Patient of Dr. Freddie Valdovinos. M-MODE ECHOCARDIOGRAM: Mitral valve, anterior leaflet of mitral valve shows normal excursion, EF velocity. Posterior leaflet of the mitral valve shows normal excursion. Left ventricular posterior wall shows increased thickness, normal excursion. Interventricular septum shows increased thickness, normal excursion, hypertrophy of the left ventricle, ejection fraction 55%. Left atrium normal. Aortic root shows normal dimension. Normal excursion of aortic leaflets. CONCLUSION: Hypertrophy of the left ventricle, ejection fraction 55%. 2D ECHO: Long axis view showed normal sized left ventricle with hypertrophy of the left ventricle. Left atrium normal. Aortic root shows normal dimension, normal excursion of aortic leaflets. Short axis view of mitral valve normal. Short axis view of aortic valve normal. Apical four chamber view showed normal sized left ventricle, left atrium, right ventricle, right atrium, tricuspid and mitral valve, hypertrophy of the left ventricle, ejection fraction 55%. Doppler study shows trace pulmonary regurgitation, trace pulmonary ____ regurgitation, right ventricular systolic pressure 30 mmHg. CONCLUSION: Hypertrophy of the left ventricle, trace pulmonary regurgitation, trace tricuspid regurgitation, ejection fraction 55%. JOB# [id number]
[2016-09-07] MEDS: Budesonide 0.5 Mg/2 mL Ud HHN SCH (19:08)
[2016-09-07] MEDS ORDERED: Levofloxacin IVPB 750mg/150mL Premix Bag IV SCH (21:00)
[2016-09-08] MEDS: INSULIN ASPART SLIDING SCALE 100 UNITS/ML UNIT SUBQ SCH ×2 (00:05→06:37)
--- NOTE | 2016-09-08 00:15 | Consultation ---
The patient of Dr. Freddie Valdovinos. HISTORY AND PHYSICAL: This 30-year-old male patient who was ____ by the mother lying with a lot of bottles open. The patient apparently overdosed on medication, the patient appeared to have lips blue, fingers, nails blue. Following this, paramedics were called in and the patient was brought to the Emergency Room. The patient is intubated at the present time, Cardiology consult requested due to hyperkalemia and elevated troponin levels. PAST MEDICAL HISTORY: Schizophrenia, diabetes, right rotator cuff tear surgery, morbid obesity. FAMILY HISTORY: Unremarkable. SOCIAL HISTORY: No history of smoking, alcohol abuse. Real history not available. ALLERGIES: None. PHYSICAL EXAMINATION: VITAL SIGNS: Blood pressure 130/80, pulse 100, respiration on ventilator. HEAD: Normocephalic. No lumps or bumps. EYES: Pupils equal, reactive to light. Fundi show AV nicking, sclerae white, conjunctivae pink. NECK: Carotid 2+. Normal upstroke. JVD 10 cm above sternal angle. Thyroid not palpable. Lymph nodes not palpable. CHEST: Shows increased AP diameter. No kyphosis or scoliosis. LUNGS: Bilateral bronchovesicular breath sounds. Bilateral wheezing, rhonchi, prolonged expiration. HEART: PMI fifth intercostal space with lateral to midclavicular line. S1, S2, S3, S4, sinus tachycardia. ABDOMEN: Soft. Liver, spleen not palpable. No organomegaly. Bowel sounds are active. NEUROLOGIC: Unremarkable. EXTREMITIES: Peripheral pulses 2+. No pedal edema. CLINICAL IMPRESSION AND PLAN: Acute respiratory failure, on ventilator, hyperkalemia, diabetes mellitus type 2, non-ST elevation myocardial infarction, right rotator cuff tear surgery, morbid obesity, schizophrenia. The patient's urine is positive for benzodiazepine____ and opioids. The patient will get an echocardiogram, control the heart rate and the blood pressure. JOB# [id number]
[2016-09-08] MEDS: Albuterol/Ipratropium Neb 3 ML AERS HHN SCH ×6 (03:24→19:50)
[2016-09-08 05:07] LABS: % BASOPHILS 0.1 % (0.0-2.0); % EOSINOPHILS 0.8 % (0.0-5.0); % LYMPHOCYTES 23.2 % (20.0-50.0); % MONOCYTES 4.9 % (2.0-10.0); HEMATOCRIT 34.4 % (39.0-49.0); HEMOGLOBIN 12.3 gm/dL (13.2-17.3); MEAN CELL VOLUME 87.9 fl (80-99); MEAN CORPUSCULAR HEMOGLOBIN 31.4 pg (26.0-30.0); MEAN CORPUSCULAR HGB CONC 35.8 pg (28.0-36.0); MEAN PLATELET VOLUME 8.8 fl; NEUTROPHILE ABSOLUTE 9.9 Th/cmm (1.8-8.0); PLATELET COUNT 211 Th/cmm (150-400); RED BLOOD COUNT 3.92 Mil/cmm (4.30-5.70)
[2016-09-08 05:12] LABS: WHITE BLOOD COUNT 13.9 Th/cmm (4.8-10.8)
[2016-09-08 05:33] LABS: ALB/GLOB RATIO 1.6 (1.0-1.8); ALKALINE PHOSPHATASE 52 U/L (34-104); AMYLASE SERUM 41 U/L (29-103); ANION GAP 10.4 (7.0-16.0); BILIRUBIN,TOTAL 0.9 mg/dL (0.3-1.0); BUN - UREA NITROGEN 6 mg/dL (7-25); BUN/CREATININE RATIO 8.6; CALCIUM SERUM 9.1 mg/dL (8.6-10.3); CARBON DIOXIDE 21.1 mEq/L (21.0-31.0); CHLORIDE 109 mEq/L (98-107); CHOLESTEROL 158 mg/dL (<200); CREATININE - SERUM 0.7 mg/dL (0.7-1.3); GLUCOSE 98 mg/dL (70-105); POTASSIUM SERUM 3.5 mEq/L (3.5-5.1); SGOT 14 U/L (13-39); SGPT/ALT 16 U/L (7-52); SODIUM SERUM 137 mEq/L (136-145); TRIGLYCERIDES 162 mg/dL (<150)
[2016-09-08] MEDS: Sodium Chloride 0.9% 1,000 ML IV SCH (06:30)
[2016-09-08] MEDS: Budesonide 0.5 Mg/2 mL Ud HHN SCH ×2 (06:53→19:50)
--- NOTE | 2016-09-08 11:08 | Consultation ---
REASON FOR CONSULTATION: Help manage with respiratory failure, on ventilator. HISTORY OF PRESENT ILLNESS: This is a 30-year-old gentleman who basically had possibly multiple bottles open along his bed found his family members. Subsequently, the patient was brought to Emergency Room as the patient is agonal breather. The patient was intubated and subsequently I was asked to see this patient for further care and necessary treatment. PAST MEDICAL HISTORY: History of multiple psychiatric illness and also history of morbid obesity and also history of questionable illicit drug use, etc. ALLERGIC HISTORY: Nil. OTHER HISTORY: Is very [id number] at this particular time. PHYSICAL FINDINGS: GENERAL: This is a heavy set, middle-aged looking gentleman, awake, trying to write the notes, but no respiratory distress, on the ET tube to be out. The patient is awake, alert. VITAL SIGNS: Temperature is 99.2, blood pressure 130/78, respirations 18, saturation 97% on 30%. HEENT: Examination of the head appears unremarkable. Pupils appear to be equal and reacting to light. Conjunctivae are slightly pallor. Oral cavity shows endotracheal tube in situ; otherwise, unremarkable, though small oropharyngeal opening. NECK: Veins not visualized. CHEST: Shows diminished air entry with occasional rhonchi. HEART: Regular. ABDOMEN: Soft, nontender. EXTREMITIES: Shows no peripheral edema. LABORATORY DATA: The patient's ABG shows to currently on ____ 30%, pH of 7.42, pO2 of 113 on 30% of oxygen. Chest x-ray show ____ infiltrate in the left upper and mid lung area including right upper lobe ____. ASSESSMENT: 1. The patient has possibly polydrug overdose with underlying psychiatric illness. 2. Possibility of illicit drug use with morbid obesity with obesity hypoventilation syndrome with history of possibly schizophrenia. PLANS AND SUGGESTIONS: As the patient is fairly awake, alert, we will go ahead and get a baseline weaning parameters, we possibly extubate the patient. We will, in the meantime, continue empirically antibiotic to cover, which has been done by Dr. Freddie Valdovinos and continue inhalation treatment, etc., to see how he does and go from there. JOB# [id number]
--- NOTE | 2016-09-08 23:20 | Discharge Summary ---
FINAL DIAGNOSES: 1. Acute respiratory failure, requiring ventilatory support due to multiple drug overdosing, suicidal ideation, now completely resolved. 2. Leukocytosis, most likely from acute tracheobronchitis, currently on Levaquin 500 once a day, will finish 5 days. 3. Multiple drug overdose including Zoloft 50 mg tablets, Xanax 1 mg tablet, Ambien 12.5 mg, and sliver pain sniffing. Further plan per Dr. Miranda. 4. Schizophrenia, but not taking any medication. Further plan per psychiatrist, Dr. Miranda. 5. Exogenous obesity with BMI of 35.9. 6. Hyperglycemia and hyperkalemia, which resolved. 7. Status post Mireles catheter, which was removed and the patient able to void without it. HOSPITAL COURSE AND IMPORTANT LABS: A 30-year-old gentleman found by mother who lives at home with the help of the mother and the mother noticed his lips are turning blue and fingernails also turning blue, agonal breathing. Paramedics were called. Narcan given in the field and the patient was brought to the Emergency Room. The patient became agonal again in the Emergency Room, intubation done. The patient successfully extubated. On admission WBC was high, so was potassium and glucose, though subsequent potassium and glucose numbers remained within normal limits. The patient is now extubated and able to tolerate diet. The patient was on Mireles catheter, which was removed and able to void urine without any difficulties. He remained afebrile, denies any headache, vision problems, swallowing problem. Denies any cough or sputum production. Occasional slight cough, dry. Denies any nausea, vomiting, appetite is poor, sleep is disturbed, could not sleep and mother was at bedside overnight. The patient has Dr. Miranda's evaluation for psychiatric facility transfer , Per Psych ok to go to go home.So DC home 09/09/16. The patient had a slightly elevated troponin of 0.09. Case discussed with Dr. Marcella Valdovinos, [facility], and he says it is not cardiac-related. No further workup needed at present time as the patient had no other risk factors other than being obese. Advised the patient to work on weight and follow up with primary care physician. JOB# [id number] [facility]
[2016-09-09] MEDS: Albuterol/Ipratropium Neb 3 ML AERS HHN SCH ×3 (00:08→08:47)
--- NOTE | 2016-09-09 00:52 | Progress Notes ---
PULMONARY PROGRESS NOTE PROBLEM LIST: 1. Acute respiratory failure, improved. 2. Bilateral patchy pneumonitis, stable. 3. Suspect metabolic syndrome with morbid obesity. SYMPTOMS: Nil. tolerated, extubating very well. Very minimal congestion of the chest, not much coughing. PHYSICAL EXAMINATION: VITAL SIGNS: Temperature is 98.2, blood pressure 146/88, saturation is in mid 90s to high 90s on 2 liters. CHEST: Shows occasional rhonchi with diminished air entry. HEART: Regular. EXTREMITIES: Shows no peripheral edema. LABORATORY DATA: The patient's white count is 13.9 and hemoglobin 12.3. Electrolytes are okay with potassium 3.5 and is 162. Triglyceride is 162. ASSESSMENT: The patient clinically appears to be stable, status post respiratory failure, status post off mechanical ventilation. Possibly overdose of medications. Bilateral patchy pneumonitis. PLANS AND SUGGESTIONS: We will go ahead and continue current treatment. Okay to move to the floor if other doctors agree and continue rest of the treatment. JOB# [id number]
[2016-09-09 07:03] LABS: % BASOPHILS 3.7 % (0.0-2.0); % EOSINOPHILS 0.7 % (0.0-5.0); % LYMPHOCYTES 24.7 % (20.0-50.0); % NEUTROPHILS 64.9 % (40.0-80.0); HEMATOCRIT 37.1 % (39.0-49.0); HEMOGLOBIN 13.1 gm/dL (13.2-17.3); MEAN CELL VOLUME 87.9 fl (80-99); MEAN CORPUSCULAR HEMOGLOBIN 30.9 pg (26.0-30.0); MEAN CORPUSCULAR HGB CONC 35.2 pg (28.0-36.0); MEAN PLATELET VOLUME 8.3 fl; RED BLOOD COUNT 4.22 Mil/cmm (4.30-5.70)
[2016-09-09 07:50] LABS: PLATELET COUNT 255 Th/cmm (150-400); WHITE BLOOD COUNT 12.4 Th/cmm (4.8-10.8)
[2016-09-09] MEDS: Budesonide 0.5 Mg/2 mL Ud HHN SCH ×2 (08:47)
--- NOTE | 2016-09-09 09:48 | Diagnostic Imaging Report ---
CHEST X-RAY: 2 views INDICATION: Pneumonia COMPARISON: Chest x-ray for 09/06/2016 FINDINGS: Marked improvement in resolving bilateral hazy infiltrates are noted. No focal consolidation or effusions. Heart size is normal. Osseous structures are intact. IMPRESSION: Marked improvement and almost complete resolution of bilateral hazy infiltrates.
--- NOTE | 2016-09-10 02:08 | Progress Notes ---
PULMONARY PROGRESS NOTE PROBLEM LIST: 1. Status post mechanical ventilation. 2. Suspect obstructive sleep apnea syndrome. 3. Pneumonitis. 4. Morbid obesity. SYMPTOMS: Nil. Feeling okay. He has been moved to the step-down unit. No respiratory distress. PHYSICAL EXAMINATION: VITAL SIGNS: Temperature is 98.7, blood pressure 146/78, respirations 19, and saturation 95% on room air. NECK: Veins not visualized. CHEST: Shows diminished air entry with occasional rhonchi. HEART: Regular. ABDOMEN: Soft and nontender. LABORATORY DATA: Chest x-ray is much improved. ASSESSMENT: The patient is clinically improving. White count is trending down. PLANS AND SUGGESTIONS: We will go ahead and continue current treatment. If it remains stable or white count remains okay, possibly discharge planning in next day or two. JOB# [id number]
--- NOTE | 2016-09-18 16:40 | Consultation ---
DATE OF CONSULTATION: 09/08/2016 PHYSICIAN REQUESTING CONSULTATION: Dr. Freddie Valdovinos. HISTORY OF PRESENT ILLNESS: This patient is a 30-year-old male living with his parents. Information obtained by directly interviewing the patient as well as talking to his mother who happened to be there by the bedside. I tried to interview the patient yesterday, but the patient was intubated and I was not able to get much of information from the patient and hence the patient had to be seen today. 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 The patient is reported to have ended up with acute respiratory failure and the patient had to be intubated. The patient at this time is cooperative and he is stating that he is not suicidal or homicidal. He wanted to be back to his normal life. The patient has a history of opioid dependence and stating that he has been off opioids for the past 4 months. His primary care physician is the one that has been giving the patient 1 mg of Xanax to be used as prn along with the gabapentin 600 mg 4 times a day. The patient is stating that he has been having a lot of anxiety and that is the reason why he has been taking. The patient has been downplaying the significance of this overdose on the computer fluid, but he is stating that he never tried to take his life. PAST PSYCHIATRIC HISTORY: The patient is stating that he is not seeing any psychiatrist. Most of the medications that he is getting are from the primary care physician. SOCIAL HISTORY: The patient is living with his family. SUBSTANCE ABUSE HISTORY: The patient is stating that he got over the opioid addiction because that was given after the shoulder surgery. He states that he is taking the Xanax only as needed but the gabapentin is the one that he is taking on a regular basis. STRENGTHS AND ASSETS: The patient is motivated and family is very supportive. MENTAL STATUS EXAMINATION: The patient is a 30-year-old, looking his stated age, superficially cooperative. Eye contact is fair. Mood is noted to be anxious. The patient is denying any suicidal ideation or plans. The patient is stating that it was a mistake. He never wanted to take his life and he has a lot to live for. The patient denies any auditory hallucinations. No delusions are noted. Insight and judgment at this time are noted to be fair. Impulse control seems to be fair. The patient is not motivated to seek any treatment in the psychiatric hospital. I have suggested him to go either to the [facility] or to the [facility] or to the rehab, but the patient is stating that there is no need for any of them and he wants to seek treatment with an individual counselor on an outpatient basis. The patient's mother is supportive of that idea and the patient's mother feels that she is comfortable with the patient coming home. DIAGNOSTIC IMPRESSION: Polysubstance abuse. PLAN: To discharge the patient to self when he is medically cleared. The patient has been given the options of the treatment programs but the patient seems to be poorly motivated. Thank you, Dr. Freddie Valdovinos, for allowing me to participate in the care of the patient. JOB# [id number] MTDD
== END 2016-09-09 13:00 | disposition home or self-care (01) | DRG 917 ==
LOC: ER 18:00 → ICU 19:40 → TELE 09-08 17:35
PROVIDERS: ADMIT Internal Medicine; ATTEND Internal Medicine
PROC: 0BH17EZ Insertion of Endotracheal Airway into Trachea, Via Natural or Artificial Opening (ICD-10-PCS; principal; 2016-09-06)
PROC: 5A1935Z Respiratory Ventilation, Less than 24 Consecutive Hours (ICD-10-PCS; 2016-09-07)
DX: T42.6X2A Poisoning by other antiepileptic and sedative-hypnotic drugs, intentional self-harm, initial encounter (principal); J96.00 Acute respiratory failure, unspecified whether with hypoxia or hypercapnia; I21.4 Non-ST elevation (NSTEMI) myocardial infarction; J18.9 Pneumonia, unspecified organism; E87.4 Mixed disorder of acid-base balance; J44.0 Chronic obstructive pulmonary disease with (acute) lower respiratory infection; T49.0X2A Poisoning by local antifungal, anti-infective and anti-inflammatory drugs, intentional self-harm, initial encounter; T42.4X3A Poisoning by benzodiazepines, assault, initial encounter; E87.5 Hyperkalemia; R00.0 Tachycardia, unspecified; F20.9 Schizophrenia, unspecified; E66.09 Other obesity due to excess calories; J20.9 Acute bronchitis, unspecified; E11.65 Type 2 diabetes mellitus with hyperglycemia; Z88.8 Allergy status to other drugs, medicaments and biological substances; Z68.35 Body mass index [BMI] 35.0-35.9, adult; Y92.89 Other specified places as the place of occurrence of the external cause
CPT/HCPCS: 36415-UA; 36600-90; 71010-TC; 71020-TC; 80048-TC; 80053-TC; 80061-TC; 80320-TC; 80329-TC; 81001-TC; 82010-TC; 82140-TC; 82150-TC; 82550-TC; 82803-TC; 82948-90; 83036-90; 83880-TC; 84443-TC; 84484-TC; 85007-TC; 85025-TC; 85027-TC; 86803-90; 87070; 87086-90; 87340-90; 93005; 94003; 94640; 94664; 96374; 96375; 99201; C9113; J0330; J1815; J1956; J2060; J7030; Z7502; Z7610

== ENCOUNTER 2017-03-20 13:45 | Inpatient (IN) | payer BC ==
[2017-03-20] MEDS ORDERED: Naloxone 0.4 mg/mL 1mL Vial IV ONE (14:17)
[2017-03-20] MEDS ORDERED: Naloxone 0.4 mg/mL 1mL Vial ONE ×3 (14:19→19:55)
[2017-03-20 14:31] LABS: % EOSINOPHILS 0.4 % (0.0-5.0); % LYMPHOCYTES 30.6 % (20.0-50.0); % MONOCYTES 4.1 % (2.0-10.0); % NEUTROPHILS 63.9 % (40.0-80.0); HEMATOCRIT 36.1 % (41.0-60); HEMOGLOBIN 12.5 gm/dL (12-16); MEAN CORPUSCULAR HEMOGLOBIN 30.5 pg (26.0-30.0); MEAN CORPUSCULAR HGB CONC 34.6 pg (28.0-36.0); MEAN PLATELET VOLUME 8.1 fl; NEUTROPHILE ABSOLUTE 7.5 Th/cmm (1.8-8.0); RED CELL DISTRIBUTION WIDTH 12.8 % (11.5-20.0); WHITE BLOOD COUNT 11.7 Th/cmm (4.8-10.8)
[2017-03-20 14:35] LABS: PLATELET COUNT 310 Th/cmm (150-400)
[2017-03-20 14:51] LABS: ALB/GLOB RATIO 1.6 (1.0-1.8); ALKALINE PHOSPHATASE 242 U/L (34-104); ANION GAP 9.1 (7.0-16.0); BILIRUBIN,TOTAL 0.5 mg/dL (0.3-1.0); BUN - UREA NITROGEN 14 mg/dL (7-25); BUN/CREATININE RATIO 17.5; CARBON DIOXIDE 24.9 mEq/L (21.0-31.0); CHLORIDE 108 mEq/L (98-107); CREATININE - SERUM 0.8 mg/dL (0.7-1.3); GLUCOSE 99 mg/dL (70-105); SGOT 14 U/L (13-39); SGPT/ALT 16 U/L (7-52); SODIUM SERUM 138 mEq/L (136-145)
[2017-03-20] MEDS ORDERED: Sodium Chloride 0.9% 1,000 ML IV ONE (15:51)
--- NOTE | 2017-03-20 16:04 | ED Physician Chart ---
ED Chief Complaint/HPI - Patient Information Date Seen:: 03/20/17 Time Seen:: 16:04 Allergies:: Allergies Allergy/AdvReac Type Severity Reaction Status Date / Time loracarbef [From Lorabid] Allergy RASH Verified 09/07/16 07:14 Vitals:: Vital Signs - 8 hr 03/20/17 13:59 Temp 97.8 F HR 92 RR 16 BP 95/65 O2 Sat % 100 Family Medical History - Family Member Mother History Unknown: Yes Ethnicity: Non- Living Status: Still Living Hx Family Hypertension: Yes father History Unknown: Yes Ethnicity: Non- Living Status: Still Living Hx Family Hypertension: Yes ED Labs/Radiology/EKG Results - Lab Results Results: Laboratory Tests 03/20/17 03/20/17 14:23 14:23 WBC 11.7 H RBC 4.10 L Hgb 12.5 Hct 36.1 L MCV 88.0 MCH 30.5 H MCHC Differential 34.6 RDW 12.8 Plt Count 310 D MPV 8.1 Neutrophils % 63.9 Lymphocytes % 30.6 Monocytes % 4.1 Eosinophils % 0.4 Basophils % 1.0 Sodium 138 Potassium 4.0 Chloride 108 H Carbon Dioxide 24.9 Anion Gap 9.1 BUN 14 Creatinine 0.8 Est GFR ( Amer) > 60.0 Est GFR (Non-Af Amer) > 60.0 BUN/Creatinine Ratio 17.5 Glucose 99 Calcium 8.0 L Magnesium 2.0 Total Bilirubin 0.5 AST 14 ALT 16 Alkaline Phosphatase 242 H Total Protein 6.7 Albumin 4.1 L Globulin 2.6 Albumin/Globulin Ratio 1.6 ED Septic Shock - <6hrs of presentation: Vital Signs: Vital Signs - 8 hr 03/20/17 13:59 Temp 97.8 F HR 92 RR 16 BP 95/65 O2 Sat % 100
--- NOTE | 2017-03-20 16:24 | ED Physician Chart ---
ED Chief Complaint/HPI - Patient Information Date Seen:: 03/20/17 Time Seen:: 15:00 Chief Complaint:: Narcotics overdose History of Present Illness:: 31 yo male was found to be without consciousness by his mother who called 911. Medications Xanax and Soma were found near the patient. Per police report, the patient had history of frequent drug overdose. 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 Allergies:: Allergies Allergy/AdvReac Type Severity Reaction Status Date / Time loracarbef [From Lorabid] Allergy RASH Verified 09/07/16 07:14 Vitals:: Vital Signs - 8 hr 03/20/17 03/20/17 13:59 16:10 Temp 97.8 F 97.9 F HR 92 89 RR 16 18 BP 95/65 106/71 O2 Sat % 100 95 ED Past Medical History - Past Medical History Obtainable: No (The patient is unresponsive) Family Medical History - Family Member Mother History Unknown: Yes Ethnicity: Non- Living Status: Still Living Hx Family Hypertension: Yes father History Unknown: Yes Ethnicity: Non- Living Status: Still Living Hx Family Hypertension: Yes ED Physical Exam - Physical Examination Other Gen/Cons comments:: Not respond to voice, mild limb contraction due to pain stimulation, mild cough due to sternal rub. Other Eyes comments:: Miosis of bilateral pupils 2mm-3mm, reactive to light. Skin: No skin lesions Neck: No JVD Respiratory: Clear to Auscultation Cardio Vascular: RRR, No murmur, gallop, rubs, NL S1 S2 GI: Nondistended Extremities: Full ROM Other Neuro/Psych comments:: Not respond to voice, mild limb contraction due to pain stimulation, mild cough due to sternal rub. ED Labs/Radiology/EKG Results - Lab Results Results: Laboratory Tests 03/20/17 03/20/17 14:23 14:23 WBC 11.7 H RBC 4.10 L Hgb 12.5 Hct 36.1 L MCV 88.0 MCH 30.5 H MCHC Differential 34.6 RDW 12.8 Plt Count 310 D MPV 8.1 Neutrophils % 63.9 Lymphocytes % 30.6 Monocytes % 4.1 Eosinophils % 0.4 Basophils % 1.0 Sodium 138 Potassium 4.0 Chloride 108 H Carbon Dioxide 24.9 Anion Gap 9.1 BUN 14 Creatinine 0.8 Est GFR ( Amer) > 60.0 Est GFR (Non-Af Amer) > 60.0 BUN/Creatinine Ratio 17.5 Glucose 99 Calcium 8.0 L Magnesium 2.0 Total Bilirubin 0.5 AST 14 ALT 16 Alkaline Phosphatase 242 H Total Protein 6.7 Albumin 4.1 L Globulin 2.6 Albumin/Globulin Ratio 1.6 ED Assessment - Assessment General Assessment: 31 yo male has opioid overdose with urine screen positive for benzodiazepine, consistent with history of Xanax and soma abuse. 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 Is Septic Shock (SBP<90, OR Lactate>4 mmol\L) present?: No - <6hrs of presentation: Vital Signs: Vital Signs - 8 hr 03/20/17 03/20/17 13:59 16:10 Temp 97.8 F 97.9 F HR 92 89 RR 16 18 BP 95/65 106/71 O2 Sat % 100 95
[2017-03-20 16:42] LABS: URINE BILIRUBIN NEGATIVE (NEGATIVE); URINE BLOOD NEGATIVE (NEGATIVE); URINE GLUCOSE (UA) NEGATIVE (NEGATIVE); URINE KETONE NEGATIVE (NEGATIVE); URINE PROTEIN NEGATIVE (NEGATIVE); URINE UROBILINOGEN 0.2 E.U./dL (0.2 - 1.0)
[2017-03-20 16:44] LABS: URINE COLOR YELLOW
[2017-03-20 16:45] LABS: URINE BACTERIA NONE SEEN /hpf (NONE SEEN); URINE EPITHELIAL CELLS RARE /lpf (FEW); URINE RBC NONE SEEN /hpf (0-5); URINE WBC 0-2 /hpf (0-5)
[2017-03-20 16:46] LABS: AMPHETAMINE URINE NEGATIVE (NEGATIVE); BARBITURATES URINE NEGATIVE (NEGATIVE); METHADONE URINE NEGATIVE (NEGATIVE)
[2017-03-20] MEDS ORDERED: Thiamine 100 mg/mL 2mL Vial IM STA (19:04)
[2017-03-20] MEDS ORDERED: Thiamine 100 mg/mL 2mL Vial ONE (19:32)
[2017-03-20] MEDS ORDERED: Naloxone 0.4 mg/mL 1mL Vial IVP STA (19:46)
[2017-03-20] MEDS ORDERED: Flumazenil 0.1 m/mL 5mL Vial IVP ONE (21:52)
[2017-03-20] MEDS ORDERED: Flumazenil 0.1 m/mL 5mL Vial IVP STA (23:04)
[2017-03-21 00:39] VITALS: BP 103/60
[2017-03-21] MEDS ORDERED: Pneumococcal Vaccine 0.5 mL Vial IM ONE (00:59)
[2017-03-21] MEDS ORDERED: Sodium Chloride 0.9% 1,000 ML IV SCH ×2 (01:32→06:45)
[2017-03-21] MEDS ORDERED: Sodium Chloride 0.9% 1,000 ML IV ONE (06:32)
[2017-03-21 06:49] LABS: BE(B) -0.2 mEq/L (-3.0-3.0); HCO3 24.5 mEq/L (20.0-26.0)
[2017-03-21 06:50] LABS: ABG SOURCE Arterial; ALLEN TEST YES; FIO2 32
[2017-03-21 06:51] LABS: CRITICAL VALUES REPORTED BY SH
[2017-03-21 07:40] LABS: HEMATOCRIT 37.3 % (41.0-60); HEMOGLOBIN 12.7 gm/dL (12-16); MEAN CELL VOLUME 89.1 fl (80-99); MEAN CORPUSCULAR HEMOGLOBIN 30.2 pg (26.0-30.0); MEAN CORPUSCULAR HGB CONC 33.9 pg (28.0-36.0); MEAN PLATELET VOLUME 8.1 fl; PLATELET COUNT 293 Th/cmm (150-400); RED BLOOD COUNT 4.19 Mil/cmm (4.30-5.70); RED CELL DISTRIBUTION WIDTH 13.1 % (11.5-20.0)
[2017-03-21 07:47] LABS: WHITE BLOOD COUNT 16.8 Th/cmm (4.8-10.8)
[2017-03-21 07:53] LABS: BUN - UREA NITROGEN 13 mg/dL (7-25); BUN/CREATININE RATIO 14.4; CALCIUM SERUM 8.2 mg/dL (8.6-10.3); CARBON DIOXIDE 27.8 mEq/L (21.0-31.0); CHLORIDE 111 mEq/L (98-107); CREATININE - SERUM 0.9 mg/dL (0.7-1.3); GLUCOSE 97 mg/dL (70-105); POTASSIUM SERUM 4.8 mEq/L (3.5-5.1); SODIUM SERUM 141 mEq/L (136-145)
[2017-03-21 08:08] LABS: BAND NEUTROPHILE 4 % (0-10); NEUTROPHILS 79 % (40-80); TOTAL CELLS COUNTED 100
[2017-03-21 08:20] LABS: HCO3 22.1 mEq/L (20.0-26.0); pH 7.36 (7.35-7.45)
[2017-03-21 08:21] LABS: ABG SOURCE Arterial; ALLEN TEST PASS; BE(B) -3.6 mEq/L (-3.0-3.0); CRITICAL VALUES REPORTED BY PW; FIO2 35; MECH RATE 16; PS 10
--- NOTE | 2017-03-21 09:44 | Diagnostic Imaging Report ---
Head CT without intravenous contrast Indication: Altered mental status Comparison: None Technique: Axial images were obtained from the vertex to the skull base without IV contrast. Coronal reconstructions were made. Total DLP: 826, [id number] FINDINGS: Images of the brain obtained without contrast demonstrate no evidence of an acute hemorrhage. The andrew-white matter differentiation is preserved. The ventricles and basal cisterns are patent. No mass effect or midline shift. No evidence of a skull fracture or focal soft tissue swelling. There is mild mucosal thickening or paranasal sinuses. IMPRESSION: No acute intracranial abnormality.
--- NOTE | 2017-03-21 09:54 | Diagnostic Imaging Report ---
CHEST X-RAY: AP view INDICATION: Pneumonia COMPARISON: 03/20/2017 FINDINGS: Lung volumes are seen with developing right basal infiltrate. Left basal subsegmental atelectasis is noted. Heart size is normal. IMPRESSION: Low lung volumes and developing right basal infiltrate.
--- NOTE | 2017-03-21 12:04 | Diagnostic Imaging Report ---
CHEST X-RAY: AP view INDICATION: Pneumonia COMPARISON: Chest x-ray 09/09/2016 FINDINGS: Low lung volumes are seen with elevation of right hemidiaphragm. This limits assessment of right lung base. Increased bibasal lung markings are noted. Heart size is normal. Osseous structures are intact. Postsurgical changes of the left proximal humerus are noted. IMPRESSION: Low lung volumes with elevation of the right hemidiaphragm increased right basal lung markings which may be due to atelectasis. Underlying infiltrate is considered less likely. Please correlate with clinical findings.
[2017-03-21] MEDS: Albuterol/Ipratropium Neb 3 ML AERS HHN SCH ×3 (14:46→22:39)
[2017-03-21] MEDS ORDERED: Haloperidol Lactate 5 mg/mL 1mL Vial IM ONE (16:54)
--- NOTE | 2017-03-21 20:15 | Consultation ---
DATE OF CONSULTATION: 03/21/[address] Reid. Thank you very much for this consultation. HISTORY OF PRESENT ILLNESS: The patient is a 31-year-old male who apparently was found poorly responsive by his mother, was found to have taken extra OxyContin. He states he took ____ pills. He is known to have some injury from football playing and he has been taking some pain medication. It is likely he has overdosed on those. The patient was placed on the BiPAP. His CO2 was elevated earlier with some respiratory acidosis, now has improved significantly. He is awake, alert, able to give history and converse properly. PAST MEDICAL HISTORY: Denies any asthma or other lung problems. SOCIAL HISTORY: Denies any smoking or drug use. PHYSICAL EXAMINATION: GENERAL: Awake, not in acute distress. VITAL SIGNS: Temperature is 97.6, pulse is 90, respiration is 28-31, blood pressure is 99/59, saturation 100%. HEENT: Atraumatic, normocephalic. Pupils equal and reactive to light and accommodation. Ears, nose and throat normal. NECK: Supple. No JVD. CHEST: There are a few rhonchi bilaterally. HEART: Regular rate and rhythm. ABDOMEN: Soft ____. EXTREMITIES: No edema. Chest x-ray, low lung volumes, small infiltrate. LABORATORY DATA: WBC 16.8, hemoglobin 12.7, platelets 293. ABGs: pH 7.36, pCO2 of 38, pO2 77, bicarbonate is 22, saturation 95%. IMPRESSION: This is a 31-year-old male status post drug overdose with pain killers and narcotics and has improved with BiPAP, awake, alert now, possible early infiltrate and maybe aspiration. PLAN: 1.We will order IV antibiotics. 2.Try off the BiPAP from nasal cannula, use BiPAP at night and as needed and observe closely. Thank you very much, I will follow the patient with you. JOB# [id number]
[2017-03-21] MEDS ORDERED: Diphenoxylate/Atropine 2.5mg Tab PO PRN (22:09)
--- NOTE | 2017-03-21 22:42 | Consultation ---
Consult Note - Consult Note Service Date: 03/21/17 Referring Physician: Calderon Reid Consult Note: PHYSICIAN Consultation Note: Date of Admission: 03/20/17 Purpose of Consultation: Chief Complaint: Patient REYNA MATSON was admitted to location Intensive Care Unit with DRUG OVERDOSE. History of Present Illness: 31 year old male with history of chronic pain 2/2 injury related with football playing found unresponsive at home by his mother. 911 was called and he was brought to the ER for further evaluation. On initial evaluation, he was unresponsive, his temperature was 97.8 degree F with hypotension and his WBC Count was 11,700. As per records, he had overdosed himself with pain medication. His WBC Count went up to 17,000. So ID consult was called for further evaluation. Currently, he is refusing any treatment, including IV therapies. He has removed his monitor in the ICU and ambulating around. For last 7 years, he became dependant on the pain medications, and xanax. He had been managed at rehab, but started taking his medications again. Now, he had presented with benzo overdose. Past Medical History: Allergies Allergy/AdvReac Type Severity Reaction Status Date / Time loracarbef [From Lorabid] Allergy RASH Verified 09/07/16 07:14 Vital Signs Temp 98.0 F 03/21/17 20:00 Pulse 87 03/21/17 21:00 Resp 18 03/21/17 21:00 BP 121/78 03/21/17 21:00 Pulse Ox 99 03/21/17 21:00 Intake & Output 03/21/17 03/21/17 03/22/17 06:59 18:59 06:59 Intake Total 950 240 Output Total 450 1200 Balance -450 -250 240 Weight (lbs) 102.058 kg 102.058 kg 102.058 kg Intake: Intake, IV Amount 50 Piperacillin Sodium/ 50 Tazobact 3.375 gm In Sodium Chloride 0.9% 50 ml @ 100 mls/hr IV Q8HR [facility] Rx#:[id number] Oral 900 240 Output: Urine 450 1200 Laboratory Results - last 24 hr 03/21/17 03/21/17 03/21/17 06:33 07:29 07:29 WBC 16.8 H D RBC 4.19 L Hgb 12.7 Hct 37.3 L MCV 89.1 MCH 30.2 H MCHC Differential 33.9 RDW 13.1 Plt Count 293 MPV 8.1 Band Neutrophils % 4 Neutrophils (Manual) 79 Lymphocytes 15 L Monocytes 2 Specimen Source Arterial Sample Site Right Radial pH 7.20 L* pCO2 76.0 H* pO2 65.0 L HCO3 24.5 Base Excess -0.2 O2 Saturation 87.0 L Christopher Test YES Vent Rate NA Inspired O2 32 Tidal Volume NA PEEP NA Pressure (ins/psv/peep) NA Critical Value SH Sodium 141 Potassium 4.8 Chloride 111 H Carbon Dioxide 27.8 Anion Gap 7.0 BUN 13 Creatinine 0.9 Est GFR ( Amer) > 60.0 Est GFR (Non-Af Amer) > 60.0 BUN/Creatinine Ratio 14.4 Glucose 97 Calcium 8.2 L 03/21/17 08:14 WBC RBC Hgb Hct MCV MCH MCHC Differential RDW Plt Count MPV Band Neutrophils % Neutrophils (Manual) Lymphocytes Monocytes Specimen Source Arterial Sample Site Left Radial pH 7.36 pCO2 38.0 pO2 77.0 L HCO3 22.1 Base Excess -3.6 L O2 Saturation 95.0 Christopher Test PASS Vent Rate 16 Inspired O2 35 Tidal Volume PEEP Pressure (ins/psv/peep) 10 Critical Value PW Sodium Potassium Chloride Carbon Dioxide Anion Gap BUN Creatinine Est GFR ( Amer) Est GFR (Non-Af Amer) BUN/Creatinine Ratio Glucose Calcium Home Medication Medication Instructions Recorded Type Alprazolam [Xanax*] 1 mg PO TID 09/06/16 History Sertraline [Zoloft] 50 mg PO DAILY 09/06/16 History Zolpidem Tartrate [Ambienpak] 12.5 mg PO QPM 09/06/16 History Levofloxacin [Levaquin] 500 mg PO DAILY #0 tablet 09/09/16 Rx Current Medications Generic Name Dose Route Start Last Admin Trade Name Freq PRN Reason Stop Dose Admin Albuterol/Ipratropium 3 ml 03/21/17 15:00 03/21/17 22:39 Duoneb Neb HHN 05/20/17 14:59 Not Given Q4HRT MARYBETH Diphenoxylate HCl/Atropine 2 tab 03/21/17 22:09 Lomotil PO 05/20/17 22:08 QID PRN Diarrhea Sodium Chloride 1,000 mls @ 100 mls/hr 03/21/17 06:45 Nacl 0.9% IV 05/20/17 06:44 .Q10H MARYBETH Piperacillin Sod/Tazobactam 50 mls @ 100 mls/hr 03/21/17 13:00 03/21/17 15:59 Sod 3.375 gm/ Sodium Chloride IV 05/20/17 12:59 Infused Q8HR MARYBETH Infusion Lorazepam 1 mg 03/21/17 22:07 03/21/17 22:13 Ativan PO 05/20/17 22:06 1 mg DAILY PRN Administration Anxiety Protocol Methocarbamol 750 mg 03/21/17 22:09 Robaxin PO 05/20/17 22:08 DAILY PRN cramps Quetiapine Fumarate 50 mg 03/21/17 16:47 Seroquel PO 05/20/17 18:00 DAILY MARYBETH Protocol Review of Systems: A 12 point ROS was reviewed with the pertinent positive and negatives noted in the HPI. Social History Smoking Status Unknown if ever smoked Drug Use Yes Alcohol Use No: Unknown; Patient is altered Family Medical History father History Unknown Yes Mother History Unknown Yes Living Status Still Living Physical Exam: General: Comfortable. There is no new change. WNWD. HEENT: Head : Normocephalic, atraumatic. Oral cavity : moist pink tongue. EYE: No pallor, no EOMI. pupil PERRLA. Neck: Supple, no JVD, no carotid bruit. Cardio: S1 and S2 WNL. Respiratory: Vesicular breath sounds, no crackles, no wheezing. Abdominal: Soft NT ND BS present. Genital/Urinary: deferred. Extremities: NCCE. Neurological: AAOx3. Ambualting well. No focal weakness. Assessment: 1. Leukocytosis seems reactive. 2. drug overdose. 3. RLL infiltrates. Aspiration pneuimonia. CAP, versus atypical. 4. Left shoulder pain. 5. Chronic pain syndrome 2/2 sport related injury. Plan: Will start zosyn, if patient refuses to take IV may try augmentin. start Zithromax. check labs in am. and sepsis w/u. I have explained to him of the plan. Thank you, Dr Reid, for involving me in taking care of Mr Davidson Bonifacio Castillo Devesh N., M.D. [id number]
[2017-03-22 00:39] LABS: MEAN PLATELET VOLUME 8.3 fl
[2017-03-22 00:44] LABS: % BASOPHILS 0.1 % (0.0-2.0); % EOSINOPHILS 0.3 % (0.0-5.0); % LYMPHOCYTES 22.2 % (20.0-50.0); % MONOCYTES 4.2 % (2.0-10.0); % NEUTROPHILS 73.2 % (40.0-80.0); HEMOGLOBIN 11.6 gm/dL (12-16); MEAN CELL VOLUME 87.8 fl (80-99); MEAN CORPUSCULAR HEMOGLOBIN 30.6 pg (26.0-30.0); MEAN CORPUSCULAR HGB CONC 34.9 pg (28.0-36.0); NEUTROPHILE ABSOLUTE 11.9 Th/cmm (1.8-8.0); PLATELET COUNT 289 Th/cmm (150-400); RED BLOOD COUNT 3.78 Mil/cmm (4.30-5.70); RED CELL DISTRIBUTION WIDTH 12.8 % (11.5-20.0)
[2017-03-22 00:45] LABS: HEMATOCRIT 33.2 % (41.0-60); WHITE BLOOD COUNT 16.2 Th/cmm (4.8-10.8)
[2017-03-22 01:13] LABS: ALB/GLOB RATIO 1.5 (1.0-1.8); ALKALINE PHOSPHATASE 251 U/L (34-104); ANION GAP 12.1 (7.0-16.0); BILIRUBIN,TOTAL 0.5 mg/dL (0.3-1.0); BUN - UREA NITROGEN 13 mg/dL (7-25); CARBON DIOXIDE 21.3 mEq/L (21.0-31.0); CHLORIDE 107 mEq/L (98-107); GLUCOSE 93 mg/dL (70-105); MAGNESIUM 1.8 mg/dL (1.9-2.7); PHOSPHOROUS 1.8 mg/dL (2.5-5.0); POTASSIUM SERUM 3.4 mEq/L (3.5-5.1); SGOT 18 U/L (13-39); SGPT/ALT 13 U/L (7-52); SODIUM SERUM 137 mEq/L (136-145)
--- NOTE | 2017-03-22 01:43 | History & Physical ---
ADMIT DATE: 03/21/2017 CHIEF COMPLAINT: Altered mental status. HISTORY OF PRESENT ILLNESS: A 31-year-old male, who was brought into the Emergency Room for his altered mental status. The patient was brought in by paramedics. The patient was evaluated in the Emergency Room, was diagnosed with the benzodiazepine overdose, acute respiratory failure, also has a history of hypotension. The patient was admitted to ICU for further treatment. At the time of evaluation, the patient was very sleepy, drowsy, difficult to communicate. I called the patient's family, I was able to talk to the patient's mother, who provided me most of the history. Per mother, the patient has had multiple episodes of drug overdose. He has been dealing with opioid dependency. He had multiple psychiatric admissions and ER visits for drug overdose. Also, the patient has been to nursing home for drug abuse. Mother said that they do not allow him to stay with them in their home, but they did allow him to stay in their trailer. Last night, she noticed him unconscious and shallow breathing, so she called 911. The patient was [facility] for [facility]ations and was discharged this past week. Mother denied the patient having any other medical illnesses. Mother stated that the patient overdosed on about 60 of Xanax and about two-third a bottle of Soma. The patient also has a primary care physician with whom he follows periodically. PAST MEDICAL HISTORY: Drug overdose, opioid dependency, anxiety. PAST SURGICAL HISTORY: None reported. SOCIAL HISTORY: Lives at home. 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 REVIEW OF SYSTEMS: Unable to obtain due to the patient's altered mental status. PHYSICAL EXAMINATION: VITAL SIGNS: His temperature was 97.6, pulse was 96, respirations were 16, last blood pressure was 99/59. HEART: S1, S2 normal. LUNGS: Clear to auscultation bilaterally. ABDOMEN: Soft. No distention, nontender. NEUROLOGIC: The patient is drowsy, thus did not follow commands. EXTREMITIES: No edema noted. Peripheral pulses were +2. AVAILABLE LABORATORY DATA: WBC is 16.8, hemoglobin 12.7, hematocrit 37.3, platelet count 293. Sodium 141, potassium 4.8, BUN 13, creatinine 0.9, GFR more than 60, AST 14, ALT 16, troponin 0.01, albumin 4.1. Chest x-ray, right lower lobe minimal infiltrate. ABG is pH of 7.36, pO2 of 77, bicarbonate 22.1. Toxicology positive for benzo, negative for any other drugs. ASSESSMENT: 1. Altered mental status. 2. Drug overdose, most likely benzo and Soma. 3. Acute respiratory failure. 4. Right-sided pneumonia. 5. Mental health disorders. PLAN: The patient admitted to ICU. The patient was maintained on IV fluids. The patient required BiPAP due to acute respiratory failure. Post BiPAP, the patient's breathing got better. Pulmonology was consulted. The patient was seen by field marketing manager. The patient taken off the BiPAP, maintaining good oxygen saturation with nasal cannula. The patient was started on empiric Zosyn. ID, Pulmonology, Neurology and Psychiatry were consulted. Case discussed with the Psych. The patient was put on 5150 hold. We will follow up on the further psych recommendations. Monitor lab and vitals. Continue high-flow maintenance fluid. Mireles catheter was ordered. I and O will be monitored. Speak therapy eval for swallowing. I discussed with the patient's mother regarding patient's conditions, plan of care, she verbalized understanding. JOB# [id number]
[2017-03-22] MEDS: Albuterol/Ipratropium Neb 3 ML AERS HHN SCH ×6 (03:12→23:00)
[2017-03-22] MEDS ORDERED: Potassium Chloride 20 mEq ER Tab PO ONE ×2 (05:26→06:27)
--- NOTE | 2017-03-22 08:26 | Consultation ---
DATE OF CONSULTATION: 03/22/2017 HISTORY OF PRESENT ILLNESS: A 31-year-old male with altered mentation. The patient is unresponsive with some respiratory distress. The patient also has low blood pressure. Feeling better today. question of drug overdose. PAST MEDICAL HISTORY: The patient with chronic pain syndrome. He says he gets medications from his physician. The patient has history of psychiatric illness. PAST SURGICAL HISTORY: Surgeries: None recently. SOCIAL HISTORY: Smokes. Drug abuse. REVIEW OF SYSTEMS: At the moment, the patient is lying in bed, awake. No headache. No chest pain. The patient complains of general body pain, back pain. Breathing is okay. Speech okay. PHYSICAL EXAMINATION: VITAL SIGNS: Temperature 98.2, blood pressure 102/60, pulse is around 90. NECK: Supple, no bruits. HEART: Sounds S1, S2. LUNGS: Clear. NEUROLOGIC: The patient is awake, alert. The patient answers questions. He gives me full history. He knew what day, what month, what year. CRANIAL: Pupils react to light full eye movement. No nystagmus. No facial weakness. MOTOR: Upper extremity 5/5, lower extremity 5/5. Reflexes 1+. INVESTIGATIONS: CT scan of the head negative. LABORATORY DATA: WBC 16.2, hemoglobin 11.6 on admission, CO2 was 76, currently is 38.0. The patient's lactic acid was 2.41, down to 0.89 now. Magnesium around 1.8. Drug screen positive for benzodiazepines. IMPRESSION: 1. Encephalopathy. 2. Drug overdose. 3. Chronic pain syndrome. 4. Psychiatric. PLAN: At the moment neurologically, no further workup. Recommend psychiatry, recommend drug rehab. JOB# [id number]
[2017-03-22] MEDS ORDERED: Probiotic Screen MC PRN (11:00)
--- NOTE | 2017-03-22 15:00 | General Progress Note ---
Subjective - Review of Systems Service Date: 03/22/17 Subjective: Patient seen and examined awake alert no reported medical complaints Objective - Results Result Diagrams: 03/22/17 00:26 03/22/17 00:26 Recent Labs: Laboratory Last Values WBC 16.2 Th/cmm (4.8-10.8) H 03/22/17 00:26 RBC 3.78 Mil/cmm (4.30-5.70) L 03/22/17 00:26 Hgb 11.6 gm/dL (12-16) L 03/22/17 00:26 Hct 33.2 % (41.0-60) L D 03/22/17 00:26 MCV 87.8 fl (80-99) 03/22/17 00:26 MCH 30.6 pg (26.0-30.0) H 03/22/17 00:26 MCHC Differential 34.9 pg (28.0-36.0) 03/22/17 00:26 RDW 12.8 % (11.5-20.0) 03/22/17 00:26 Plt Count 289 Th/cmm (150-400) 03/22/17 00:26 MPV 8.3 fl 03/22/17 00:26 Neutrophils % 73.2 % (40.0-80.0) 03/22/17 00:26 Band Neutrophils % 4 % (0-10) 03/21/17 07:29 Lymphocytes % 22.2 % (20.0-50.0) 03/22/17 00:26 Monocytes % 4.2 % (2.0-10.0) 03/22/17 00:26 Eosinophils % 0.3 % (0.0-5.0) 03/22/17 00:26 Basophils % 0.1 % (0.0-2.0) 03/22/17 00:26 Neutrophils (Manual) 79 % (40-80) 03/21/17 07:29 Lymphocytes 15 % (20-50) L 03/21/17 07:29 Monocytes 2 % (2-10) 03/21/17 07:29 Specimen Source Arterial 03/21/17 08:14 Sample Site Left Radial 03/21/17 08:14 pH 7.36 (7.35-7.45) 03/21/17 08:14 pCO2 38.0 mmHg (35.0-45.0) 03/21/17 08:14 pO2 77.0 mmHg (80.0-100.0) L 03/21/17 08:14 HCO3 22.1 mEq/L (20.0-26.0) 03/21/17 08:14 Base Excess -3.6 mEq/L (-3.0-3.0) L 03/21/17 08:14 O2 Saturation 95.0 % (92.0-100.0) 03/21/17 08:14 Christopher Test PASS 03/21/17 08:14 Vent Rate 16 03/21/17 08:14 Inspired O2 35 03/21/17 08:14 Tidal Volume NA 03/21/17 06:33 PEEP NA 03/21/17 06:33 Pressure (ins/psv/peep) 10 03/21/17 08:14 Critical Value PW 03/21/17 08:14 Sodium 137 mEq/L (136-145) 03/22/17 00:26 Potassium 3.4 mEq/L (3.5-5.1) L 03/22/17 00:26 Chloride 107 mEq/L (98-107) 03/22/17 00:26 Carbon Dioxide 21.3 mEq/L (21.0-31.0) 03/22/17 00:26 Anion Gap 12.1 (7.0-16.0) 03/22/17 00:26 BUN 13 mg/dL (7-25) 03/22/17 00:26 Creatinine 1.0 mg/dL (0.7-1.3) 03/22/17 00:26 Est GFR ( Amer) > 60.0 ml/min (>90) 03/22/17 00:26 Est GFR (Non-Af Amer) > 60.0 ml/min 03/22/17 00:26 BUN/Creatinine Ratio 13.0 03/22/17 00:26 Glucose 93 mg/dL (70-105) 03/22/17 00:26 Whole Bld Lactic Acid 0.89 mmol/L (0.60-1.99) 03/22/17 05:49 Calcium 9.0 mg/dL (8.6-10.3) 03/22/17 00:26 Phosphorus 1.8 mg/dL (2.5-5.0) L 03/22/17 00:26 Magnesium 1.8 mg/dL (1.9-2.7) L 03/22/17 00:26 Total Bilirubin 0.5 mg/dL (0.3-1.0) 03/22/17 00:26 AST 18 U/L (13-39) 03/22/17 00:26 ALT 13 U/L (7-52) 03/22/17 00:26 Alkaline Phosphatase 251 U/L (34-104) H 03/22/17 00:26 Troponin I 0.01 ng/mL (0.01-0.05) 03/20/17 14:23 Total Protein 6.6 gm/dL (6.0-8.3) 03/22/17 00:26 Albumin 4.0 gm/dL (4.2-5.5) L 03/22/17 00:26 Globulin 2.6 gm/dL 03/22/17 00:26 Albumin/Globulin Ratio 1.5 (1.0-1.8) 03/22/17 00:26 Urine Source CLEAN C 03/20/17 16:15 Urine Color YELLOW 03/20/17 16:15 Urine Clarity CLEAR (CLEAR) 03/20/17 16:15 Urine pH 7.0 (4.6 - 8.0) 03/20/17 16:15 Ur Specific [place] 1.010 (1.005-1.030) 03/20/17 16:15 Urine Protein NEGATIVE mg/dL (NEGATIVE) 03/20/17 16:15 Urine Glucose (UA) NEGATIVE mg/dL (NEGATIVE) 03/20/17 16:15 Urine Ketones NEGATIVE mg/dL (NEGATIVE) 03/20/17 16:15 Urine Blood NEGATIVE (NEGATIVE) 03/20/17 16:15 Urine Nitrate NEGATIVE (NEGATIVE) 03/20/17 16:15 Urine Bilirubin NEGATIVE (NEGATIVE) 03/20/17 16:15 Urine Urobilinogen 0.2 E.U./dL (0.2 - 1.0) 03/20/17 16:15 Ur Leukocyte Esterase NEGATIVE (NEGATIVE) 03/20/17 16:15 Urine RBC NONE SEEN /hpf (0-5) 03/20/17 16:15 Urine WBC 0-2 /hpf (0-5) 03/20/17 16:15 Ur Epithelial Cells RARE /lpf (FEW) 03/20/17 16:15 Urine Bacteria NONE SEEN /hpf (NONE SEEN) 03/20/17 16:15 Urine Opiates Screen NEGATIVE (NEGATIVE) 03/20/17 16:15 Urine Methadone Screen NEGATIVE (NEGATIVE) 03/20/17 16:15 Ur Barbiturates Screen NEGATIVE (NEGATIVE) 03/20/17 16:15 Ur Tricyclics Screen NEGATIVE (NEGATIVE) 03/20/17 16:15 Ur Phencyclidine Scrn NEGATIVE (NEGATIVE) 03/20/17 16:15 Amphetamines Screen NEGATIVE (NEGATIVE) 03/20/17 16:15 U Methamphetamines Scrn NEGATIVE (NEGATIVE) 03/20/17 16:15 U Benzodiazepines Scrn POSITIVE (NEGATIVE) H 03/20/17 16:15 U Cocaine Metab Screen NEGATIVE (NEGATIVE) 03/20/17 16:15 U Cannabinoids Screen NEGATIVE (NEGATIVE) 03/20/17 16:15 HIV 1&2 Antibody Screen NEGATIVE (NEG) 03/22/17 00:26 - Physical Exam Vitals and I&O: Vital Signs Temp 97.9 F 03/22/17 11:56 Pulse 66 03/22/17 11:56 Resp 18 03/22/17 11:56 BP 119/63 03/22/17 11:56 Pulse Ox 99 03/22/17 11:56 Intake & Output 03/21/17 03/22/17 03/22/17 18:59 06:59 18:59 Intake Total 950 290 Output Total 1200 Balance -250 290 Weight (lbs) 102.058 kg 102.058 kg Intake: Intake, IV Amount 50 50 Piperacillin Sodium/ 50 50 Tazobact 3.375 gm In Sodium Chloride 0.9% 50 ml @ 100 mls/hr IV Q8HR [facility] Rx#:[id number] Oral 900 240 Output: Urine 1200 Active Medications: Current Medications Albuterol/Ipratropium (Duoneb Neb) 3 ml HHN Q4HRT [facility] Stop: 05/20/17 14:59 Last Admin: 03/22/17 10:42 Dose: 3 ml Azithromycin (Zithromax) 250 mg PO DAILY [facility] Stop: 05/22/17 08:59 Diphenoxylate HCl/Atropine (Lomotil) 2 tab PO QID PRN PRN Reason: Diarrhea Stop: 05/20/17 22:08 Piperacillin Sod/Tazobactam (Sod 3.375 gm/ Sodium Chloride) 50 mls @ 100 mls/ hr IV Q8HR [facility] Stop: 05/20/17 12:59 Last Admin: 03/22/17 13:00 Dose: 100 mls/hr Lactobacillus Rhamnosus (Culturelle) 1 each PO DAILY [facility] Stop: 05/22/17 08:59 Lorazepam (Ativan) 1 mg PO DAILY PRN; Protocol PRN Reason: Anxiety Stop: 05/20/17 22:06 Last Admin: 03/22/17 08:53 Dose: 1 mg Methocarbamol (Robaxin) 750 mg PO DAILY PRN PRN Reason: cramps Stop: 05/20/17 22:08 Last Admin: 03/22/17 00:38 Dose: 750 mg Miscellaneous (Probiotic Screen) 1 ea [facility] PRN PRN PRN Reason: PROTOCOL Stop: 05/21/17 10:59 Quetiapine Fumarate (Seroquel) 50 mg PO DAILY [facility] PRN Reason: Protocol Stop: 05/20/17 18:00 Last Admin: 03/22/17 13:07 Dose: 50 mg General: Alert Cardiovascular: Regular rate Lungs: Clear to auscultation - Procedures Procedures: Procedures Procedure Code Date INSERTION OF ENDOTRACHEAL AIRWAY INTO TRACHEA, VIA OPENING [id number] 09/06/16 RESPIRATORY VENTILATION, LESS THAN 24 CONSECUTIVE HOURS [id number] 09/06/16 Assessment/Plan - Assessment Assessment: Drug overdose Right sided pneumonia Anxiety - Plan Plan: Patient seems medically stable Awaiting Inpatient psych facility transfer per Psych recommendations 5150 HOLD by Psych 1:1 sitter Plan of care discussed with patient and nursing staff
--- NOTE | 2017-03-23 00:40 | Consultation ---
DATE OF CONSULTATION: 03/22/2017 INITIAL PSYCHIATRIC EVALUATION REFERRING PHYSICIAN: Dr. Reid. CONSULTING PHYSICIAN: Dr. Padron. The patient was seen and evaluated. The patient's chart was reviewed. REASON FOR CONSULTATION: Suicide attempt and altered mental status. HISTORY OF PRESENT ILLNESS: This is a 31-year-old male who was brought in here from the Emergency Room for altered mental status. He was brought into the ICU to be evaluated after the benzodiazepine overdose, resulting in acute respiratory failure and a history of hypotension, admitted to the ICU for further treatment. Today, on [id number] evaluation, the patient is extremely in denial and extremely poor insight in regards to the extensive history of drug use. He was found with Xanax ____ and also inhalant on his overdose. When attempting to discuss with regards to these overdose, the patient is mostly preoccupied and focused about being discharged and the only thing that he is trying to communicate is about being discharged. He also reports being dealing with his opiate dependency and has had multiple psychiatric hospitalizations, most recently discharged from ____ [facility] with extremely poor insight right now in regards to the severity of the suicide attempt. Denies any auditory hallucinations or visual hallucinations. No delusions. Per medical records, it seems like the mother has stated that the patient overdosed on about 16 mg of Xanax and also taking two-thirds of the bottle of Soma. The patient also has a primary care physician who he follows periodically with prescribed medications. We will continue pursuing who is that person as he is an extremely high risk of suicide and overdose whether or not they are intentional. The patient continues to be extremely poor insight in regards to his chronic use. PAST MEDICAL HISTORY: Status post overdose on benzo, opiates, and inhalants. PAST PSYCHIATRIC HISTORY: Polysubstance use disorder severely, multiple psychiatric hospitalization. PAST SURGICAL HISTORY: None. SOCIAL HISTORY: Currently living with mother, denies any illicit sexual, physical, or verbal abuse, very guarded in regards to drug use, using benzodiazepines, prescribed OxyContin and inhalants and computer anesthesia attending. ALLERGIES TO MEDICATIONS: NKDA. CURRENT MEDICATIONS: Reviewed. Refer to MAR please. VITAL SIGNS: Reviewed. LABS: Reviewed. MENTAL STATUS EXAMINATION: He is extremely irritable, easily agitated, mostly preoccupied about being discharged, not engaging in a linear conversation. He is mostly preoccupied with extremely poor insight, judgment, and impulse control ____. Suicidal and homicidal risk is high for high suicide risk. PRIMARY DIAGNOSES: Unspecified depressive disorder, major depressive disorder ____ versus bipolar. SECONDARY DIAGNOSES: Polysubstance use dependence, severe dependency on opiates, benzos, and Soma. MEDICAL DIAGNOSES: Acute overdose on benzos, Soma, and recently diagnosed with right-sided pneumonia. LABORATORY DATA: Reviewed as noted above. ASSESSMENT AND PLAN: The patient is a 31-year-old male with extremely poor insight in regards to his extensive drug use and addiction he has had. It is unclear how much of his symptoms right now are consistent with true intention versus a suicide attempt regardless of the intent itself. The patient has been exhibiting extremely poor impulse control in regards to his addiction that resulted in ____ secondary to overdosing. Due to the patient's poor impulse control and poor insight in regards to his drug use and suicide attempt, he is unable to formulate a safe plan. I agree to continue with the patient on a 5150. The patient is a high risk of ____. We will have a male one-to-one sitter and we will also transfer the patient to a psych unit as soon as the patient is medically cleared. In the meantime, we will have a one-to-one sitter and close monitoring to reduce the risk of ____. The patient was discussed in great detail with the patient, staff members, and also with primary medical doctor. We will continue monitoring with Seroquel to reduce the risk of anxiety. We will continue with monitoring withdrawal symptoms from both opiates and also benzodiazepines. Thank you for the consultation. We will continue to follow alongside. We will also obtain more collateral baseline information with the family. Currently pending Pulmonology and Neurology consultation. JOB# [id number]
[2017-03-23] MEDS: Albuterol/Ipratropium Neb 3 ML AERS HHN SCH ×3 (03:57→08:34)
[2017-03-23] MEDS ORDERED: Lactobacillus Rhamnosus 10 Billion CFU Capsule PO SCH (09:00)
--- NOTE | 2017-03-23 17:25 | Consultation ---
DATE OF CONSULTATION: 03/23/2017 SUBJECTIVE: Chart was reviewed and the patient interviewed. Also discussed the patient's condition with the staff and reviewed records and labs. The patient is alert and oriented to time, place, person, and situation. The patient also is interacting more. He denies any intention to harm himself or others. The patient also is talking about his desire to stop drugs, which is mainly opiates. Otherwise, the patient's vital signs are stable and no symptoms or signs of withdrawal. The patient said that he has an appointment with a doctor to get Suboxone to help with his addiction to opiates. ASSESSMENT: The patient is not suicidal or homicidal. The patient can be discharged from the hospital when medically stable. Thanks to Dr. Reid and we will follow with you if the patient stays in the hospital. JOB# [id number]
== END 2017-03-23 10:15 | disposition left against medical advice (07) | DRG 917 ==
LOC: ER 13:45 → TELE 23:20 → ICU 03-21 02:10 → MSI 03-22 10:16
PROVIDERS: ADMIT Family Medicine; ATTEND Family Medicine
PROC: 5A09357 Assistance with Respiratory Ventilation, Less than 24 Consecutive Hours, Continuous Positive Airway Pressure (ICD-10-PCS; principal; 2017-03-21)
DX: T42.4X1A Poisoning by benzodiazepines, accidental (unintentional), initial encounter (principal); J96.00 Acute respiratory failure, unspecified whether with hypoxia or hypercapnia; J69.0 Pneumonitis due to inhalation of food and vomit; G93.40 Encephalopathy, unspecified; F11.20 Opioid dependence, uncomplicated; T42.8X1A Poisoning by antiparkinsonism drugs and other central muscle-tone depressants, accidental (unintentional), initial encounter; F41.9 Anxiety disorder, unspecified; G89.4 Chronic pain syndrome; F32.9 Major depressive disorder, single episode, unspecified; Y92.89 Other specified places as the place of occurrence of the external cause; Z88.8 Allergy status to other drugs, medicaments and biological substances
CPT/HCPCS: 36415-UA; 36600-90; 70450-TC; 71010-TC; 80048-TC; 80053-TC; 80307; 81001-TC; 82803-TC; 83605; 83735-TC; 84100-TC; 84484-TC; 85007-TC; 85025-TC; 85027-TC; 86703-TC; 86738-90; 87070; 90779; 93005; 94640; 94660; 94760; J1200; J1630; J2543; J3411; J7030; X6614; Z7610